=== PATIENT | female | born 1950 | race Caucasian/White ===

== ENCOUNTER 2016-04-16 04:42 | Emergency (ER) | END 2016-04-16 06:31 | disposition home or self-care (01) | CPT/HCPCS: 81001; 87086; 99283; A9270 ==

== ENCOUNTER 2016-05-17 11:06 | Outpatient (CLI) | payer MEDICAID | END 2016-05-17 11:07 | disposition home or self-care (01) | DX: Z77.21 Contact with and (suspected) exposure to potentially hazardous body fluids (principal) ==

== ENCOUNTER 2016-08-08 17:03 | Outpatient (CLI) | payer MEDICAID | END 2016-08-08 17:04 | disposition home or self-care (01) | DX: M19.012 Primary osteoarthritis, left shoulder (principal); M19.011 Primary osteoarthritis, right shoulder ==

== ENCOUNTER 2016-08-28 07:44 | Day surgery (SDC) | payer MEDICAID ==
[~2016-08-28 07:44] MED LIST: ceFAZolin 2 GM/50 ML 50 ML IV ONE
[2016-08-28] MEDS ORDERED: LACTATED RINGERS 1,000 ML IV ONE (07:55)
[2016-08-28] MEDS ORDERED: MIDAZOLAM 2 MG/2 ML VIAL IVP ONE (10:40)
[2016-08-28] MEDS ORDERED: PROPOFOL 200 MG/20 ML VIAL IVP ONE (10:40)
[2016-08-28] MEDS ORDERED: fentaNYL 100 MCG/2 ML VIAL IVP ONE (10:40)
[2016-08-28] MEDS ORDERED: LIDOCAINE-PF 2% 10 ML AMP SUBQ ONE (10:40)
[2016-08-28] MEDS ORDERED: LIDOCAINE 1% 50 ML MDV SUBQ ONE (10:46)
[2016-08-28] MEDS ORDERED: LIDOCAINE-PF 4% 5 ML AMP SUBQ ONE (10:55)
[2016-08-28] MEDS ORDERED: methylPREDNISolone ACETATE 40 MG/ML VIAL IM ONE ×2 (10:55)
[2016-08-28] MEDS ORDERED: KETOROLAC 15 MG/ML VIAL ONE (11:18)
--- NOTE | 2016-08-28 11:30 | OPERATIVE REPORT ---
DATE OF SURGERY: 08/28/2016 00:00:00 PREOPERATIVE DIAGNOSES 1. Left palm mass. 2. Bilateral shoulder impingement syndrome. POSTOPERATIVE DIAGNOSES 1. Left palm mass. 2. Bilateral shoulder impingement syndrome. NAME OF PROCEDURE: Left palm mass excisional biopsy and subacromial injection of each shoulder. SURGEON: Volodymyr Britton MD ANESTHESIA: Local MAC with Mark Stroud CRNA. INDICATIONS FOR SURGERY: The patient is a 65-year-old female who has developed a slow-growing lump in her palm sitting at the level of the A1 kong in the 4th volar webspace. This has now reached pea s ize and bothersome to her, causing some pain in well shooter, but no neurological disturbance. It is nonpulsa tile, it seems solid, does not show up on x-ray, and recommendation is that she have an excisional bi opsy performed. Additionally, the patient has impingement syndrome of her shoulders and recommendatio n is that she, at her request, have injections placed when under sedation. DESCRIPTION OF OPERATIVE PROCEDURE: The patient was taken to the operating room, was given a MAC loca l anesthetic. Her hand was sterilely prepped and draped in standard fashion. A timeout was performed. She was also infiltrated in the soft tissues around the small lump, as well as placing a median nerv e and an ulnar nerve block at the wrist level. The lump was directly approached through a transverse incision reflecting soft tissues away from a we ll encapsulated paul-like mass which was able to be delivered up into the subcutaneous tissue and ca refully excised, and this did appear to be well encapsulated throughout and not attached except for a small strand of tissue on the deep aspect. This lump was sent off to pathology after dividing it in half and finding it to be completely solid without fibrils, no apparent neural elements. The irrigati on was performed in the wound and closure was with interrupted 4-0 nylon suture. The patient's dressings were applied and a volar splint. The shoulders were injected with a quick pre p of iodine and injection into the subacromial space of each shoulder with 4 mL of 1% lidocaine and 1 mL of Depo-Medrol 40 mg/mL. The patient tolerated this well, and was taken to the recovery room in s table condition. ESTIMATED BLOOD LOSS: Minimal. COMPLICATIONS: None. SPONGE AND NEEDLE COUNTS: Correct. JOB #: [id number] EXT JOB #:[id number]
[2016-08-28] MEDS ORDERED: HYDROcod/ACETAM 5/325 MG TABLET ONE (11:44)
[2016-08-28 12:11] VITALS: BP 136/75
== END 2016-08-28 07:45 | disposition home or self-care (01) ==
LOC: SDS 07:44
PROVIDERS: ATTEND Orthopaedic Surgery
PROC: 3E0U33Z Introduction of Anti-inflammatory into Joints, Percutaneous Approach (ICD-10-PCS; 2016-08-28)
PROC: 3E0U33Z Introduction of Anti-inflammatory into Joints, Percutaneous Approach (ICD-10-PCS; 2016-08-28)
PROC: 3E0U3BZ Introduction of Anesthetic Agent into Joints, Percutaneous Approach (ICD-10-PCS; 2016-08-28)
PROC: 3E0U3BZ Introduction of Anesthetic Agent into Joints, Percutaneous Approach (ICD-10-PCS; 2016-08-28)
PROC: 0JBK0ZZ Excision of Left Hand Subcutaneous Tissue and Fascia, Open Approach (ICD-10-PCS; principal; 2016-08-28 09:35)
DX: D36.7 Benign neoplasm of other specified sites (principal); M75.41 Impingement syndrome of right shoulder; M75.42 Impingement syndrome of left shoulder; Z79.82 Long term (current) use of aspirin; Z87.891 Personal history of nicotine dependence; I10 Essential (primary) hypertension; E78.5 Hyperlipidemia, unspecified; E11.9 Type 2 diabetes mellitus without complications; G47.30 Sleep apnea, unspecified
CPT/HCPCS: 20610; 26115; 88305; A9270; J0690; J1030; J7120

== ENCOUNTER 2017-01-08 11:07 | Outpatient (CLI) | payer MEDICARE, MEDICAID | END 2017-01-08 11:08 | disposition home or self-care (01) | LOC: SC 11:07 | PROVIDERS: ATTEND Nurse Practitioner Family | DX: G47.33 Obstructive sleep apnea (adult) (pediatric) (principal) | CPT/HCPCS: 99214; G0463; 99212 ==

== ENCOUNTER 2017-02-02 19:25 | Outpatient (CLI) | payer MEDICARE, MEDICAID | END 2017-02-02 19:26 | disposition home or self-care (01) | LOC: SC 19:25 | PROVIDERS: ATTEND Internal Medicine Pulmonary Disease | DX: G47.33 Obstructive sleep apnea (adult) (pediatric) (principal); G47.61 Periodic limb movement disorder; Z68.35 Body mass index [BMI] 35.0-35.9, adult | CPT/HCPCS: 95811 ==

== ENCOUNTER 2017-02-27 07:31 | Outpatient (CLI) | payer MEDICARE, MEDICAID ==
[2017-02-27 07:48] LABS: BASOPHILS # (AUTO) 0.1 10^3/uL (0.0-0.1); BASOPHILS % (AUTO) 1.2 %; EOSINOPHILS # (AUTO) 0.6 10^3/uL (0.0-0.7); HCT - HEMATOCRIT 36.9 % (37.0-47.0); HGB - HEMOGLOBIN 12.8 g/dL (12.0-16.0); LYMPHOCYTES # (AUTO) 1.9 10^3/uL (1.5-3.5); LYMPHOCYTES % (AUTO) 28.6 %; MEAN CORPUSCULAR HEMOGLOBIN 31.4 pg (27.0-31.0); MEAN CORPUSCULAR HGB CONC 34.6 g/dL (32.0-36.0); MEAN CORPUSCULAR VOLUME 90.7 fL (81.0-99.0); MEAN PLATELET VOLUME 7.3 fL (7.9-10.8); MONOCYTES # (AUTO) 0.6 10^3/uL (0.0-1.0); MONOCYTES % (AUTO) 9.1 %; NEUTROPHILS # (AUTO) 3.5 10^3/uL (1.5-6.6); NEUTROPHILS % (AUTO) 52.1 %; NUCLEATED RED BLOOD CELLS AUTO 0.1 /100WBC; RED BLOOD COUNT 4.07 10^6/uL (4.20-5.40); RED CELL DISTRIBUTION WIDTH 13.4 % (12.0-15.0); UNCORRECTED WHITE BLOOD COUNT 6.7 x10^3/uL; WHITE BLOOD COUNT 6.7 x10^3/uL (4.8-10.8)
[2017-02-27 08:06] LABS: ALBUMIN/GLOBULIN RATIO 1.5 (1.0-2.2); BILIRUBIN,TOTAL 0.4 mg/dL (0.2-1.0); BUN - BLOOD UREA NITROGEN 18 mg/dL (6-20); CALCIUM 9.1 mg/dL (8.5-10.3); CARBON DIOXIDE - CO2 27 mmol/L (21-32); CHLORIDE 103 mmol/L (101-111); CHOL/HDL RATIO 2.9 (<4.4); CHOLESTEROL 147 mg/dL; CREATININE 0.8 mg/dL (0.4-1.0); GFR - MDRD 72 (>89); GLUCOSE 104 mg/dL (70-100); HDL CHOLESTEROL 50 mg/dL; LDL/HDL RATIO 1.8 (<4.4); SODIUM 139 mmol/L (135-145); TOTAL PROTEIN 7.1 g/dL (6.7-8.2); TRIGLYCERIDES 43 mg/dL; VLDL CHOLESTEROL 9 mg/dL
[2017-02-27 08:46] LABS: HEMOGLOBIN A1C 0.47 g/dL
== END 2017-02-27 07:32 | disposition home or self-care (01) ==
LOC: LAB 07:31
PROVIDERS: ATTEND Physician Assistant Medical
DX: Z86.39 Personal history of other endocrine, nutritional and metabolic disease (principal); E66.9 Obesity, unspecified; D64.9 Anemia, unspecified
CPT/HCPCS: 36415; 80053; 80061; 83036; 85025

== ENCOUNTER 2017-04-05 13:23 | Emergency (ER) | payer MEDICARE, MEDICAID ==
[2017-04-05 13:33] VITALS: BP 143/87
--- NOTE | 2017-04-05 14:49 | ED Physician Documentation ---
PD HPI UPPER EXT INJURY - Stated complaint Stated Complaint: RT FINGER LAC - Chief complaint Chief Complaint: Laceration - History obtained from History obtained from: Patient - History of Present Illness Location: Right, Finger (middle) Where injury occurred: Home Timing - onset: Today (Just prior to arrival.) Associated symptoms: No: Weakness, Numbness - Additonal information Additional information: The patient is a 66-year-old female who cut her right middle finger on a manager meat at home just prior to arrival. She is right hand dominant. Her tetanus status is up-to-date. She denies any other injuries. 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 HEENT: Cataracts, Tonsil/Adenoidectomy - Present Medications Home Medications: Ambulatory Orders Medication Instructions Recorded Confirmed Aspirin 1 tab PO DAILY 03/24/16 04/05/17 Biotin 5 mg PO DAILY 08/24/16 04/05/17 Cholecalciferol (Vitamin D3) 2,000 unit PO DAILY 08/24/16 04/05/17 [Vitamin D] Cranberry Fruit Extract [Cranberry] 300 mg PO DAILY 08/24/16 04/05/17 Loratadine [Claritin] 10 mg PO DAILY 08/24/16 04/05/17 Multivitamin [Multiple Vitamins] 1 each PO DAILY 08/24/16 04/05/17 - Allergies Allergies/Adverse Reactions: Allergies Allergy/AdvReac Type Severity Reaction Status Date / Time latex Allergy Intermediate Rash Verified 04/05/17 13:33 adhesive Allergy Rash Verified 04/05/17 13:33 - Social History Does the pt smoke?: No Smoking Status: Never smoker Does the pt drink ETOH?: No Does the pt have substance abuse?: No - Immunizations Immunizations are current?: Yes - POLST Patient has POLST: No PD ED PE NORMAL - Vitals Vital signs reviewed: Yes (initially hypertensive.) - General General: Alert and oriented X 3, Well developed/nourished - HEENT HEENT: Atraumatic - Respiratory Respiratory: No respiratory distress - Derm Derm: No rash - Extremities Extremities: Other (There is a 1.5 cm laceration over the dorsal aspect of the right middle finger, overlying the PIP joint. She has full flexion and extension of the DIP, PIP, and MCP joints, against resistance. Distal neurovascular is intact.) - Neuro Neuro: Alert and oriented X 3, No motor deficit, No sensory deficit Results - Vitals Vitals: Oxygen O2 Source [] Room air O2 Source Room air Procedures - Laceration (location) Right middle finger Length in cm: 1.5 Wound type: Linear, Into subcut fat, Clean Neurovascular status: Sensory intact, Motor intact, Vascular intact Tendon involvement: Tendon intact Anesthesia: Lidocaine 1% Wound Preparation: Hibiclens, Irrigated copiously NS, Wound explored, To the base. No: FB identified Skin layer closure: Nylon, Size #-0 - enter number (5), Sutures - enter # (3) Other: Patient tolerated well, No complications, Neurovascular intact, Dressing applied, Tetanus UTD Complexity: Simple PD MEDICAL DECISION MAKING - ED course Complexity details: re-evaluated patient, considered differential, d/w patient ED course: The patient's presentation is significant for simple laceration over the dorsum of the right middle finger at the level of the PIP joint. Treatment in the emergency department included thorough cleaning of the wound after local anesthetic using 1% lidocaine. The wound was repaired with 5-0 nylon simple sutures. Antibiotic ointment and gauze dressing applied. I discussed with her the expected course of healing, timing for suture removal, as well as potentially worrisome signs or symptoms that should prompt reevaluation in the emergency department. Departure - Departure Disposition: 01 Home, Self Care Clinical Impression: Finger laceration Qualifiers: Encounter type: initial encounter Finger: middle finger Damage to nail status: without damage Foreign body presence: without foreign body Laterality: right Qualified Code(s): S61.212A - Laceration without foreign body of right middle finger without damage to nail, initial encounter Condition: Stable Instructions: ED Laceration Hand Follow-Up: Mariah Dietz PA-C [Primary Care Provider] - Comments: Keep the wound clean. Apply antibiotic ointment daily. Follow-up for suture removal in about 10 days. Return to the emergency department if you develop any sign of infection, or otherwise worsening symptoms. Discharge Date/Time: 04/05/17 15:02
== END 2017-04-05 15:02 | disposition home or self-care (01) ==
LOC: ED 13:23
DX: S61.212A Laceration without foreign body of right middle finger without damage to nail, initial encounter (principal); W29.0XXA Contact with powered kitchen appliance, initial encounter; Y92.010 Kitchen of single-family (private) house as the place of occurrence of the external cause; I10 Essential (primary) hypertension; E11.9 Type 2 diabetes mellitus without complications; G47.30 Sleep apnea, unspecified; M19.90 Unspecified osteoarthritis, unspecified site; Z79.82 Long term (current) use of aspirin
CPT/HCPCS: 12001; 99282; 99283

== ENCOUNTER 2017-05-07 15:49 | Outpatient (CLI) | payer MEDICARE, MEDICAID | END 2017-05-07 15:50 | disposition home or self-care (01) | LOC: SC 15:49 | PROVIDERS: ATTEND Nurse Practitioner Family | DX: G47.33 Obstructive sleep apnea (adult) (pediatric) (principal) | CPT/HCPCS: 99214; G0463; 99212 ==

== ENCOUNTER 2017-07-10 07:34 | Outpatient (CLI) | payer MEDICARE, MEDICAID ==
[2017-07-10 07:55] LABS: BASOPHILS # (AUTO) 0.1 10^3/uL (0.0-0.1); BASOPHILS % (AUTO) 1.4 %; EOSINOPHILS # (AUTO) 0.3 10^3/uL (0.0-0.7); EOSINOPHILS % (AUTO) 5.7 %; HGB - HEMOGLOBIN 13.2 g/dL (12.0-16.0); LYMPHOCYTES # (AUTO) 2.1 10^3/uL (1.5-3.5); LYMPHOCYTES % (AUTO) 33.6 %; MEAN CORPUSCULAR HEMOGLOBIN 30.6 pg (27.0-31.0); MEAN CORPUSCULAR HGB CONC 33.5 g/dL (32.0-36.0); MEAN CORPUSCULAR VOLUME 91.2 fL (81.0-99.0); MEAN PLATELET VOLUME 7.3 fL (7.9-10.8); MONOCYTES # (AUTO) 0.5 10^3/uL (0.0-1.0); MONOCYTES % (AUTO) 8.7 %; NEUTROPHILS # (AUTO) 3.1 10^3/uL (1.5-6.6); NEUTROPHILS % (AUTO) 50.6 %; PLT - PLATELET COUNT 195 10^3/uL (130-450); RED BLOOD COUNT 4.32 10^6/uL (4.20-5.40); RED CELL DISTRIBUTION WIDTH 13.5 % (12.0-15.0); WHITE BLOOD COUNT 6.1 x10^3/uL (4.8-10.8)
[2017-07-10 08:06] LABS: ALBUMIN 4.4 g/dL (3.2-5.5); ALBUMIN/GLOBULIN RATIO 1.6 (1.0-2.2); BILIRUBIN,TOTAL 0.6 mg/dL (0.2-1.0); CALCIUM 9.1 mg/dL (8.5-10.3); CREATININE 0.8 mg/dL (0.4-1.0); TOTAL PROTEIN 7.2 g/dL (6.7-8.2)
== END 2017-07-10 07:35 | disposition home or self-care (01) ==
LOC: LAB 07:34
PROVIDERS: ATTEND Physician Assistant Medical
DX: Z86.39 Personal history of other endocrine, nutritional and metabolic disease (principal); M17.9 Osteoarthritis of knee, unspecified
CPT/HCPCS: 36415; 80053; 85025

== ENCOUNTER 2017-07-22 08:55 | Outpatient (CLI) | payer MEDICARE, MEDICAID | END 2017-07-22 08:56 | disposition home or self-care (01) | LOC: LAB 08:55 | PROVIDERS: ATTEND Orthopaedic Surgery | DX: Z01.810 Encounter for preprocedural cardiovascular examination (principal); M17.12 Unilateral primary osteoarthritis, left knee | CPT/HCPCS: 36415; 86850; 86900; 86901; 93005 ==

== ENCOUNTER 2017-07-23 06:13 | Inpatient (IN) | payer MEDICARE, MEDICAID ==
[2017-07-23] MEDS ORDERED: LACTATED RINGERS 1,000 ML IV ONE (06:32)
[2017-07-23] MEDS ORDERED: CELECOXIB 100 MG CAPSULE PO ONE (06:35)
[2017-07-23] MEDS ORDERED: ACETAMINOPHEN 1,000 MG/100 ML 100 ML IV ONE ×2 (06:35→09:00)
[2017-07-23] MEDS ORDERED: ceFAZolin 2 GM/50 ML 2 GM/50 ML BAG IV ONE (06:36)
[2017-07-23] MEDS ORDERED: EPINEPHrine 1 MG/ML AMP ONE (07:07)
[2017-07-23] MEDS ORDERED: BUPIVACAINE 0.5% PF 30 ML VIAL ONE (07:07)
[2017-07-23] MEDS ORDERED: ROPIVACAINE 0.5% PF 20 ML AMPULE ONE (07:07)
[2017-07-23] MEDS ORDERED: SODIUM CHLORIDE 0.9% 30 ML ONE (07:07)
[2017-07-23] MEDS ORDERED: ALBUTEROL NEB 2.5 MG/3 ML INH ONE (07:16)
[2017-07-23] MEDS ORDERED: IPRATROPIUM 0.2 MG/ML NEB INH ONE (07:18)
[2017-07-23] MEDS ORDERED: ALBUTEROL 6.7 GM INHALER INH ONE (08:00)
[2017-07-23] MEDS ORDERED: MORPHINE PF 5 MG/10 ML AMP SUBQ ONE (08:51)
[2017-07-23] MEDS ORDERED: KETOROLAC 15 MG/ML VIAL IVP ONE (08:51)
[2017-07-23] MEDS ORDERED: BUPIVACAINE 0.5% PF 30 ML VIAL SUBQ ONE ×2 (08:51)
[2017-07-23] MEDS ORDERED: ROPIVACAINE 0.2% PF 20 ML AMPULE SUBQ ONE (08:51)
[2017-07-23] MEDS ORDERED: EPINEPHrine 1 MG/ML AMP IVP ONE (08:51)
[2017-07-23] MEDS ORDERED: MIDAZOLAM 2 MG/2 ML VIAL IVP ONE (09:00)
[2017-07-23] MEDS ORDERED: MORPHINE PF 5 MG/10 ML AMP EP ONE (09:00)
[2017-07-23] MEDS ORDERED: PROPOFOL 200 MG/20 ML VIAL IVP ONE (09:00)
[2017-07-23] MEDS ORDERED: ONDANSETRON 4 MG/2 ML VIAL IVP ONE (09:00)
[2017-07-23] MEDS ORDERED: KETOROLAC 30 MG/ML VIAL IVP ONE (09:00)
[2017-07-23] MEDS ORDERED: LIDOCAINE-MPF 2% 5 ML VIAL IM ONE (09:00)
--- NOTE | 2017-07-23 09:59 | OPERATIVE REPORT ---
Operative Report - General Admit Date: 07/23/17 Procedure Date: 07/23/17 Planned Procedure: left TKA Pre-Op Diagnosis: DJD left knee Procedure Performed: left TKA Post Op Diagnosis: DJD left knee - Procedure Note Primary Surgeon: juhi Anesthesia Provider: Dr. Barrow Anesthesia Technique: Combo spinal/epidural, General ET tube IV Fluids (mL): 60
[2017-07-23] MEDS ORDERED: MEPERIDINE 50 MG/ML VIAL ONE (10:35)
--- NOTE | 2017-07-23 11:31 | XRAY Report ---
TWO VIEW LEFT KNEE: 07/23/2017 CLINICAL INDICATION: Postop. FINDINGS: Frontal and lateral views of the left knee demonstrate a total knee replacement in place. Subcutaneous gas is noted. There is no evidence of acute fracture or immediate hardware complication. IMPRESSION: EXPECTED POSTOPERATIVE APPEARANCE OF LEFT KNEE REPLACEMENT. TD: 07/23/2017 10:56
[2017-07-23] MEDS: HYDROcod/ACETAM 5/325 MG TABLET PO PRN ×2 (11:38→19:56)
[2017-07-23] MEDS: SODIUM CHLORIDE 0.45% 1,000 ML IV SCH ×2 (11:39→22:37)
--- NOTE | 2017-07-23 12:20 | OPERATIVE REPORT ---
DATE OF SERVICE: 07/23/2017 Physician: Volodymyr Britton MD PREOPERATIVE DIAGNOSIS: Left knee osteoarthritis. POSTOPERATIVE DIAGNOSIS: PROCEDURE PERFORMED: Left total knee arthroplasty. OPERATING SURGEON: Volodymyr Britton MD ANESTHESIA: Spinal and general, Dr. Blue. INDICATIONS FOR SURGERY: The patient is a 66-year-old female who 2 years ago underwent a right total knee arthroplasty for osteoarthritis and has done well in the postoperative period. She presents now with increasing osteoarthritis in her left knee and constant knee pain, nonresponsive to conservative measures. FINDINGS AT SURGERY: The patient's knee range of motion under anesthesia is 5 degrees to 115 degrees. The knee is stable. There was a small amount of effusion and crepitus with range of motion. At open surgery, she is found to have severe cartilage loss in the medial compartment and in the distal aspect of the femur, femoral groove and patella. The patient's bone density is fairly well preserved and she has very prominent osteophytes. DESCRIPTION OF OPERATIVE PROCEDURE: The patient was taken to the operating room, was given a spinal anesthetic, a Mcintosh catheter was placed and she was in a supine position. The patient's left lower extremity was sterilely prepped and draped in standard fashion and after surgical timeout, the surgery progressed with inflation of the tourniquet to 300 mmHg. A curved medial approach was made to the knee with a medial parapatellar incision extending up into the junction of the distal quadriceps and VMO. Effusion was irrigated from the knee and the knee joint exposed with removal of osteophytes with a rongeur, lateral release of patella and subluxation of the patella laterally for flexion of the knee and exposure of the joint. The ACL remnant was removed, as were the anterior horns of medial and lateral meniscus. The distal femur was sized to a size 8 standard and the distal femoral cutting block was applied and the distal femur cut. Following this, the sequential cutting block for a size 8 was applied and the 4-in-1 cuts were made carefully retracting and protecting soft tissues. The remaining osteophytes were removed from the femur. The tibia was then addressed by placing retractors and subluxating the tibia anteriorly, placing the external tibial guide and adjusting for rotation, slope and height. Ultimately, the cut was made and the proximal surface was sized to a size E baseplate. The trial template was set in place and held with screws, and drilling and broaching performed for the finned tibial component. The osteophytes again were removed from these surfaces. The trial reduction was performed with the femur in place and electing to use a size 16 poly to recreate stability about the knee and excellent alignment and range of motion without extrusion of the components. The patient's posterior osteophytes were removed with an osteotome and a curette. The knee was flushed and irrigated thoroughly, after which the patella was prepared by measuring 24 cutting down to 16 and then medializing and drilling a size 32 patella. All surfaces were then prepared for cementing of implants, and the implants were brought into the field cementing in first the tibial baseplate and removing excess cement, then cementing in the femoral component, and then placing a temporary trial spacer to allow extension as the patella was cemented in place and held. Cement was allowed to progress to hardening with removal of excess cement. The tibial baseplate, size 16, was brought into the field and with careful subluxation of the tibia, the baseplate was able to be inserted and reduced and was stable. The knee was again washed thoroughly and given a dilute Betadine soak for about 2-3 minutes, after which the wash ended and pulsatile lavage rinsed the Betadine from the knee and the tourniquet was deflated. Bleeding was controlled with cautery. Closure was with FiberWire interrupted sutures in the patient's medial retinaculum obtaining a watertight closure followed by 0 and 2-0 Vicryl closure of subcutaneous tissues and 3-0 Prolene running closure of skin. A sterile dressing and a reinforced compressive dressing was applied to the knee after which the patient was then taken to recovery room in stable condition. ESTIMATED BLOOD LOSS: About 60 mL COMPLICATIONS: None. COUNTS: Sponge and needle counts were correct. IMPLANTS USED: [employer] Person[employer] total knee implants. A left regular size 8 femur, a size E baseplate, size 16 vitamin E infused poly, a size 32 x 8.5 mm patella. TD: 07/23/2017 12:18
[2017-07-23] MEDS: HYDROmorphone 1 MG/ML CARPUJECT IVP PRN ×4 (12:39→22:23)
[2017-07-23] MEDS: ACETAMINOPHEN 1,000 MG/100 ML 100 ML IV PRN ×2 (13:22→19:57)
[2017-07-23] MEDS: SODIUM CHLORIDE FLUSH 0.9% 10 ML SYRINGE IVP SCH (15:26)
[2017-07-23] MEDS: ceFAZolin 2 GM/50 ML 2 GM/50 ML BAG IV SCH (15:35)
[2017-07-23] MEDS: SODIUM CHLORIDE FLUSH 0.9% 10 ML SYRINGE IVP PRN (15:35)
[2017-07-23] MEDS: ONDANSETRON 4 MG/2 ML VIAL IVP PRN (22:28)
[2017-07-24] MEDS: HYDROcod/ACETAM 5/325 MG TABLET PO PRN ×3 (00:31→09:39)
[2017-07-24] MEDS: ceFAZolin 2 GM/50 ML 2 GM/50 ML BAG IV SCH (00:31)
[2017-07-24] MEDS: SODIUM CHLORIDE FLUSH 0.9% 10 ML SYRINGE IVP SCH ×3 (00:31→18:07)
[2017-07-24] MEDS: HYDROmorphone 1 MG/ML CARPUJECT IVP PRN ×3 (03:17→10:59)
[2017-07-24] MEDS: SODIUM CHLORIDE FLUSH 0.9% 10 ML SYRINGE IVP PRN (03:18)
[2017-07-24 05:05] LABS: BASOPHILS % (AUTO) 0.5 %; EOSINOPHILS % (AUTO) 0.2 %; HGB - HEMOGLOBIN 10.5 g/dL (12.0-16.0); LYMPHOCYTES # (AUTO) 1.2 10^3/uL (1.5-3.5); LYMPHOCYTES % (AUTO) 12.7 %; MEAN CORPUSCULAR HEMOGLOBIN 30.5 pg (27.0-31.0); MEAN CORPUSCULAR HGB CONC 33.5 g/dL (32.0-36.0); MEAN CORPUSCULAR VOLUME 91.2 fL (81.0-99.0); MEAN PLATELET VOLUME 7.6 fL (7.9-10.8); MONOCYTES # (AUTO) 1.1 10^3/uL (0.0-1.0); NEUTROPHILS # (AUTO) 6.9 10^3/uL (1.5-6.6); NEUTROPHILS % (AUTO) 74.6 %; PLT - PLATELET COUNT 145 10^3/uL (130-450); RED BLOOD COUNT 3.44 10^6/uL (4.20-5.40); RED CELL DISTRIBUTION WIDTH 13.2 % (12.0-15.0); WHITE BLOOD COUNT 9.2 x10^3/uL (4.8-10.8)
[2017-07-24 05:09] LABS: CALCIUM 8.6 mg/dL (8.5-10.3); CREATININE 0.7 mg/dL (0.4-1.0)
--- NOTE | 2017-07-24 08:12 | PROVIDER PROGRESS NOTE ---
Subjective - General Admit Date: 07/23/17 Procedure Date: 07/23/17 Post Op Days: 1 Procedure Performed: left Total Knee arthroplasty Objective - Patient Data Reviewed Vital Signs: Yes Vital Signs: Vital Signs x48h Temp Pulse Resp BP BP Pulse Ox 07/24/17 07:49 36.7 C 68 19 128/67 100 07/24/17 05:02 36.5 C 66 18 125/76 100 07/24/17 00:24 36.4 C L 75 18 122/65 99 Weight: Weight 07/22/17 07/23/17 07/24/17 23:59 23:59 23:59 Weight (kg) 89.358 kg Intake & Output: Intake and Output Totals x24h 07/22/17 07/23/17 07/24/17 23:59 23:59 23:59 Intake Total 2550 50 Output Total 800 240 Balance 1750 -190 - Lab Results Lab Results: 07/24/17 04:45 07/24/17 04:45 Other Lab Results: Lab Results x24hrs 07/24/17 07/24/17 Range/Units 04:45 04:45 WBC 9.2 (4.8-10.8) x10^3/uL RBC 3.44 L (4.20-5.40) 10^6/uL Hgb 10.5 L (12.0-16.0) g/dL Hct 31.3 L (37.0-47.0) % MCV 91.2 (81.0-99.0) fL MCH 30.5 (27.0-31.0) pg MCHC 33.5 (32.0-36.0) g/dL RDW 13.2 (12.0-15.0) % Plt Count 145 (130-450) 10^3/uL MPV 7.6 L (7.9-10.8) fL Neut # 6.9 H (1.5-6.6) 10^3/uL Lymph # 1.2 L (1.5-3.5) 10^3/uL [place] # 1.1 H (0.0-1.0) 10^3/uL Eos # 0.0 (0.0-0.7) 10^3/uL Baso # 0.0 (0.0-0.1) 10^3/uL Absolute Nucleated RBC 0.00 x10^3/uL Nucleated RBC % 0.0 /100WBC Sodium 136 (135-145) mmol/L Potassium 4.0 (3.5-5.0) mmol/L Chloride 102 (101-111) mmol/L Carbon Dioxide 28 (21-32) mmol/L Anion Gap 6.0 (6-13) BUN 12 (6-20) mg/dL Creatinine 0.7 (0.4-1.0) mg/dL Estimated GFR (MDRD) 84 L (>89) Glucose 142 H (70-100) mg/dL Calcium 8.6 (8.5-10.3) mg/dL - Current Medications Current Medications: Current Medications Generic Name Dose Route Start Last Admin Trade Name Freq PRN Reason Stop Dose Admin Acetaminophen/Hydrocodone Bitart 1 tab 07/23/17 10:00 07/24/17 06:09 [place] 5/325 PO 1 tab Q4HR PRN Administration PAIN Hydromorphone HCl 1 mg 07/23/17 10:00 07/24/17 03:17 Dilaudid Inj Carp IVP 1 mg Q2HR PRN Administration Breakthrough Pain Acetaminophen 100 mls @ 400 mls/hr 07/23/17 10:00 07/23/17 20:15 Ofirmev IV Infused Q6HR PRN Infusion PAIN Sodium Chloride 1,000 mls @ 100 mls/hr 07/23/17 12:30 07/23/17 22:37 Normal Saline 0.45% IV 100 mls/hr .Q10H RANDALL Administration Ondansetron HCl 4 mg 07/23/17 10:00 07/23/17 22:28 Zofran Inj IVP 4 mg Q6HR PRN Administration Nausea / Vomiting Sodium Chloride 10 ml 07/23/17 17:00 07/24/17 07:51 Normal Saline Flush 0.9% IVP Not Given 0100,0900,1700 RANDALL Sodium Chloride 10 ml 07/23/17 10:00 07/24/17 03:18 Normal Saline Flush 0.9% IVP 10 ml PRN PRN Administration NEEDED PER PROVIDER ORDERS Impression/Plan - Problem List Problem List: POD #1:
[2017-07-24] MEDS: ONDANSETRON 4 MG/2 ML VIAL IVP PRN (08:28)
[2017-07-24] MEDS: PROCHLORPERAZINE 10 MG/2 ML VIAL IVP PRN ×3 (09:08→21:44)
[2017-07-24] MEDS: SODIUM CHLORIDE 0.45% 1,000 ML IV SCH (09:10)
[2017-07-24] MEDS: MAGNESIUM OXIDE 400 MG TABLET PO SCH (09:39)
[2017-07-24] MEDS: ASPIRIN EC 325 MG TABLET PO SCH ×2 (09:39→20:00)
[2017-07-24] MEDS: SENNA 8.6 MG TABLET PO SCH (09:39)
[2017-07-24] MEDS: OMEGA-3 ACID ETHYL ESTERS 1 GM CAPSULE PO SCH (09:39)
[2017-07-24] MEDS: CHOLECALCIFEROL 1,000 UNIT TABLET PO SCH (09:39)
[2017-07-24] MEDS: METRONIDAZOLE TOP SCH (09:40)
[2017-07-24] MEDS: POTASSIUM GLUCONATE PO SCH (09:40)
[2017-07-24] MEDS ORDERED: ZOLPIDEM 5 MG TABLET PO PRN (12:03)
[2017-07-24] MEDS ORDERED: SODIUM CHLORIDE 0.45% 1,000 ML IV SCH (12:05)
[2017-07-24] MEDS: oxyCOD/ACETAMIN 5 MG/325 MG TABLET PO PRN ×3 (14:14→21:42)
[2017-07-25] MEDS: SODIUM CHLORIDE FLUSH 0.9% 10 ML SYRINGE IVP SCH ×3 (02:43→20:25)
[2017-07-25] MEDS: oxyCOD/ACETAMIN 5 MG/325 MG TABLET PO PRN ×5 (02:51→20:25)
[2017-07-25] MEDS: SENNA 8.6 MG TABLET PO SCH (08:34)
[2017-07-25] MEDS: MAGNESIUM OXIDE 400 MG TABLET PO SCH (08:34)
[2017-07-25] MEDS: ASPIRIN EC 325 MG TABLET PO SCH ×2 (08:34→20:26)
[2017-07-25] MEDS: CHOLECALCIFEROL 1,000 UNIT TABLET PO SCH (08:34)
[2017-07-25] MEDS: OMEGA-3 ACID ETHYL ESTERS 1 GM CAPSULE PO SCH (08:34)
[2017-07-25] MEDS: METRONIDAZOLE TOP SCH (08:35)
[2017-07-25] MEDS: POTASSIUM GLUCONATE PO SCH (08:35)
[2017-07-25] MEDS: ACETAMINOPHEN 325 MG TABLET PO PRN (09:38)
--- NOTE | 2017-07-25 13:13 | PROVIDER PROGRESS NOTE ---
Subjective - General Admit Date: 07/23/17 Procedure Date: 07/23/17 Post Op Days: 2 Procedure Performed: left Total Knee arthroplasty - Review of Systems Wound/Incisions: positive: Dressing dry and intact Musculoskeletal: positive: Joint pain Skin: positive: No symptoms Neurological: Psychiatric: positive: No symptoms Objective - Patient Data Reviewed Vital Signs: Yes Vital Signs: Vital Signs x48h Temp Pulse Resp BP Pulse Ox 07/25/17 11:10 37.3 C 82 20 137/69 H 98 07/25/17 07:33 37.1 C 86 19 130/65 96 07/25/17 06:19 36.9 C 83 18 137/74 H 95 Weight: Weight 07/23/17 07/24/17 07/25/17 23:59 23:59 23:59 Weight (kg) 89.358 kg Intake & Output: Intake and Output Totals x24h 07/23/17 07/24/17 07/25/17 23:59 23:59 23:59 Intake Total 2550 2558.333 1340 Output Total 800 1690 Balance 1750 373.206 4849 - Lab Results Lab Results: 07/24/17 04:45 07/24/17 04:45 - Current Medications Current Medications: Current Medications Generic Name Dose Route Start Last Admin Trade Name Freq PRN Reason Stop Dose Admin Acetaminophen 650 - 975 mg 07/23/17 10:00 07/25/17 09:38 Tylenol PO 650 mg Q4HR PRN Administration PAIN Aspirin 325 mg 07/24/17 09:00 07/25/17 08:34 Ecotrin PO 325 mg BID RANDALL Administration Cholecalciferol 2,000 unit 07/24/17 09:00 07/25/17 08:34 Vitamin D3 PO 2,000 unit DAILY RANDALL Administration Acetaminophen 100 mls @ 400 mls/hr 07/23/17 10:00 07/23/17 20:15 Ofirmev IV Infused Q6HR PRN Infusion PAIN Sodium Chloride 1,000 mls @ 0 mls/hr 07/24/17 12:05 07/25/17 08:32 Normal Saline 0.45% IV 30 mls/hr .Q0M RANDALL Administration TKO Magnesium Oxide 400 mg 07/24/17 08:00 07/25/17 08:34 Mag Ox PO 400 mg DAILYWM RANDALL Administration Non-Formulary Medication 1 applic 07/24/17 09:00 07/25/17 08:35 Metronidazole [Metronidazole] TOP Not Given DAILY [facility] Non-Formulary Medication 1 tab 07/24/17 09:00 07/25/17 08:35 Potassium Gluconate [Potassium Gluconate] PO Not Given DAILY [facility] Rtqbm-3-Eyvy Ethyl Esters 1 gm 07/24/17 09:00 07/25/17 08:34 Lovaza PO 1 gm DAILY RANDALL Administration Ondansetron HCl 4 mg 07/23/17 10:00 07/24/17 08:28 Zofran Inj IVP 4 mg Q6HR PRN Administration Nausea / Vomiting Oxycodone/Acetaminophen 1 tab 07/24/17 12:02 07/25/17 09:38 Percocet 5 Mg/325 Mg PO 1 tab Q4HR PRN Administration PAIN Prochlorperazine Edisylate 10 mg 07/23/17 10:00 07/24/17 21:44 Compazine Inj IVP 10 mg Q6HR PRN Administration Nausea / Vomiting Senna 8.6 mg 07/24/17 09:00 07/25/17 08:34 Senokot PO 8.6 mg DAILY RANDALL Administration Sodium Chloride 10 ml 07/23/17 17:00 07/25/17 08:35 Normal Saline Flush 0.9% IVP Not Given 0100,0900,1700 RANDALL Sodium Chloride 10 ml 07/23/17 10:00 07/24/17 03:18 Normal Saline Flush 0.9% IVP 10 ml PRN PRN Administration NEEDED PER PROVIDER ORDERS Zolpidem Tartrate 5 mg 07/24/17 12:03 07/24/17 23:54 Ambien PO 5 mg QPM PRN Administration Insomnia - Physical Exam Wound/Incisions: positive: Dressing dry and intact General Appearance: positive: No acute distress Skin: positive: Warm, Dry Extremities: positive: Joint swelling Neurologic/Psychiatric: positive: CN's nml (2-12), Motor nml, Sensation nml, Mood/affect nml Impression/Plan - Problem List Problem List: POD #2 advancing well. and better pain control Plan on continued PT.
[2017-07-26] MEDS: oxyCOD/ACETAMIN 5 MG/325 MG TABLET PO PRN ×3 (00:27→08:40)
[2017-07-26] MEDS: SODIUM CHLORIDE FLUSH 0.9% 10 ML SYRINGE IVP SCH ×2 (00:28→08:03)
[2017-07-26 08:02] VITALS: BP 113/88
[2017-07-26] MEDS: CHOLECALCIFEROL 1,000 UNIT TABLET PO SCH (08:39)
[2017-07-26] MEDS: SENNA 8.6 MG TABLET PO SCH (08:39)
[2017-07-26] MEDS: MAGNESIUM OXIDE 400 MG TABLET PO SCH (08:40)
[2017-07-26] MEDS: OMEGA-3 ACID ETHYL ESTERS 1 GM CAPSULE PO SCH (08:40)
[2017-07-26] MEDS: ASPIRIN EC 325 MG TABLET PO SCH (08:40)
[2017-07-26] MEDS: ACETAMINOPHEN 325 MG TABLET PO PRN (08:40)
[2017-07-26] MEDS: METRONIDAZOLE TOP SCH (08:42)
[2017-07-26] MEDS: POTASSIUM GLUCONATE PO SCH (08:42)
--- NOTE | 2017-07-26 09:17 | PROVIDER PROGRESS NOTE ---
Subjective - General Admit Date: 07/23/17 Procedure Date: 07/23/17 Post Op Days: 3 Procedure Performed: left Total Knee arthroplasty - Review of Systems Wound/Incisions: positive: Dressing dry and intact Musculoskeletal: positive: Joint pain Skin: positive: No symptoms Psychiatric: positive: No symptoms Objective - Patient Data Reviewed Vital Signs: Yes Vital Signs: Vital Signs x48h Temp Pulse Resp BP Pulse Ox 07/26/17 08:00 37.1 C 88 19 113/88 H 98 Intake & Output: Intake and Output Totals x24h 07/24/17 07/25/17 07/26/17 23:59 23:59 23:59 Intake Total 2558.333 3184.667 160 Output Total 1690 700 Balance 719.720 0204.667 160 - Lab Results Lab Results: 07/24/17 04:45 07/24/17 04:45 - Current Medications Current Medications: Current Medications Generic Name Dose Route Start Last Admin Trade Name Freq PRN Reason Stop Dose Admin Acetaminophen 650 - 975 mg 07/23/17 10:00 07/26/17 08:40 Tylenol PO 650 mg Q4HR PRN Administration PAIN Aspirin 325 mg 07/24/17 09:00 07/26/17 08:40 Ecotrin PO 325 mg BID RANDALL Administration Cholecalciferol 2,000 unit 07/24/17 09:00 07/26/17 08:39 Vitamin D3 PO 2,000 unit DAILY RANDALL Administration Acetaminophen 100 mls @ 400 mls/hr 07/23/17 10:00 07/23/17 20:15 Ofirmev IV Infused Q6HR PRN Infusion PAIN Sodium Chloride 1,000 mls @ 0 mls/hr 07/24/17 12:05 07/25/17 14:32 Normal Saline 0.45% IV 0 mls/hr .Q0M RANDALL Infusion TKO Magnesium Oxide 400 mg 07/24/17 08:00 07/26/17 08:40 Mag Ox PO 400 mg DAILYWM RANDALL Administration Non-Formulary Medication 1 applic 07/24/17 09:00 07/26/17 08:42 Metronidazole [Metronidazole] TOP Not Given DAILY [facility] Non-Formulary Medication 1 tab 07/24/17 09:00 07/26/17 08:42 Potassium Gluconate [Potassium Gluconate] PO Not Given DAILY [facility] Hedba-7-Qspr Ethyl Esters 1 gm 07/24/17 09:00 07/26/17 08:40 Lovaza PO 1 gm DAILY RANDALL Administration Ondansetron HCl 4 mg 07/23/17 10:00 07/24/17 08:28 Zofran Inj IVP 4 mg Q6HR PRN Administration Nausea / Vomiting Oxycodone/Acetaminophen 1 tab 07/24/17 12:02 07/26/17 08:40 Percocet 5 Mg/325 Mg PO 1 tab Q4HR PRN Administration PAIN Prochlorperazine Edisylate 10 mg 07/23/17 10:00 07/24/17 21:44 Compazine Inj IVP 10 mg Q6HR PRN Administration Nausea / Vomiting Senna 8.6 mg 07/24/17 09:00 07/26/17 08:39 Senokot PO 8.6 mg DAILY RANDALL Administration Sodium Chloride 10 ml 07/23/17 17:00 07/26/17 08:03 Normal Saline Flush 0.9% IVP Not Given 0100,0900,1700 RANDALL Sodium Chloride 10 ml 07/23/17 10:00 07/24/17 03:18 Normal Saline Flush 0.9% IVP 10 ml PRN PRN Administration NEEDED PER PROVIDER ORDERS Zolpidem Tartrate 5 mg 07/24/17 12:03 07/24/17 23:54 Ambien PO 5 mg QPM PRN Administration Insomnia - Physical Exam Wound/Incisions: positive: Healing well General Appearance: positive: No acute distress Extremities: positive: Joint swelling Neurologic/Psychiatric: positive: Motor nml, Sensation nml, Mood/affect nml Impression/Plan - Problem List Problem List: POD #3 Pt is doing well and prepared for d/c. wound dressing changed. plan to see in office in one week.
--- NOTE | 2017-07-26 09:23 | Discharge Plan ---
Discharge Plan Disposition: 01 Home, Self Care Condition: Good Prescriptions: Aspirin EC [Ecotrin] 325 mg PO BID #60 tablet Diet: Regular Activity Restrictions: Wt Bearing as Tolerated Shower Restrictions: Yes (cover left knee and keep dry) Driving Restrictions: Yes (no driving) Assistance Devices: Walker Weight Bearing: Full Weight Instruction Topics: Tips Knee Post Op, Post Op Pain Manage Home Meds, Post Op Pain Manage Home Non Med No Smoking: If you smoke, Please STOP! Call for help. Follow-up with: Mariah Dietz PA-C [Primary Care Provider] - Volodymyr Britton MD [Provider Admit Priv/Credential] -
--- NOTE | 2017-08-05 18:59 | DISCHARGE SUMMARY ---
Physician: Volodymyr Britton MD DATE OF ADMISSION: 07/23/2017 DATE OF DISCHARGE: 07/26/2017 ADMISSION DIAGNOSIS: Left knee osteoarthritis. OPERATIVE PROCEDURE: 07/23/2017, left total knee replacement arthroplasty. REASON FOR ADMISSION: Patient is a 66-year-old female with progressive osteoarthritis involving her left knee, who has had a previous successful right total knee arthroplasty for arthritis and now presents for the same on the left knee. The patient has had worsening pain and diminishing function and has failed nonoperative care. The patient's history and physical exam is documented in her admission record. HOSPITAL COURSE: The patient was admitted and she underwent an uneventful total knee arthroplasty on 07/23/2017. In the postoperative period she was returned to the floor receiving standard postop care including IV antibiotics, DVT prophylaxis, early mobilization with physical therapy, pain medication and wound care. The patient showed uneventful healing in this postoperative period to the point that on 07/26/2017 she was ready for discharge to home with planned followup in the office within a week. Instructions were given for management at home and she was to resume her usual medication. Additionally, she was to use aspirin for DVT prophylaxis and oxycodone for pain relief. TD: 08/05/2017 18:57
== END 2017-07-26 10:50 | disposition home or self-care (01) | DRG 470 ==
LOC: MS3 06:13
PROVIDERS: ADMIT Orthopaedic Surgery; ATTEND Orthopaedic Surgery
PROC: 0SRD069 Replacement of Left Knee Joint with Oxidized Zirconium on Polyethylene Synthetic Substitute, Cemented, Open Approach (ICD-10-PCS; principal; 2017-07-23 07:30)
DX: M17.12 Unilateral primary osteoarthritis, left knee (principal); G47.33 Obstructive sleep apnea (adult) (pediatric); D64.9 Anemia, unspecified; E66.9 Obesity, unspecified; M19.012 Primary osteoarthritis, left shoulder; M19.011 Primary osteoarthritis, right shoulder; Z96.651 Presence of right artificial knee joint; Z68.34 Body mass index [BMI] 34.0-34.9, adult; Z79.82 Long term (current) use of aspirin; Z79.899 Other long term (current) drug therapy; Z87.891 Personal history of nicotine dependence
CPT/HCPCS: 36415; 80048; 85025

== ENCOUNTER 2017-09-21 09:54 | Emergency (ER) | payer MEDICARE, MEDICAID ==
--- NOTE | 2017-09-21 11:01 | ED Physician Documentation ---
PD HPI BACK PAIN - Stated complaint Stated Complaint: LOWER BACK PX - Chief complaint Chief Complaint: Back Pain - History obtained from History obtained from: Patient - History of Present Illness Timing - onset: How many weeks ago (has had some pain in lower left back for 1- 2 weeks and worse the past couple days. Hurts with movement but also a steady pain that is not movement related. Knee surgery in July is healing okay, but had obvious limp favoring the knee as healing so thought it was muscular.) Timing - duration: Weeks Timing - details: Gradual onset, Still present, Waxing and waning Location: Lower, Left Quality: Pain, Aching Associated symptoms: No: Fever, Weakness, Numbness, Incontinent of urine Improves with: No: Rest Worsened by: Movement Contributing factors: Other (Knee surgery 2 months ago. Denies leg edema nor infection.). No: Lifting, Twisting Similar symptoms before: Has not had sx before Recently seen: Surgery (left knee 2 months ago.) Review of Systems Constitutional: denies: Fever, Chills : denies: Dysuria, Frequency, Hematuria, Discharge Skin: denies: Rash, Lesions Musculoskeletal: denies: Extremity swelling Neurologic: denies: Focal weakness, Numbness PD PAST MEDICAL HISTORY - Past Medical History Past Medical History: Yes Cardiovascular: None Respiratory: Sleep apnea, CPAP use Endocrine/Autoimmune: Type 2 diabetes GI: None : None HEENT: None, Other Psych: None Musculoskeletal: Osteoarthritis Derm: None, Other - Past Surgical History Past Surgical History: Yes General: Colonoscopy 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 HEENT: Cataracts, Tonsil/Adenoidectomy Derm: Skin cancer surgery - Present Medications Home Medications: Ambulatory Orders Medication Instructions Recorded Confirmed Biotin 5 mg PO DAILY 08/24/16 07/23/17 Cholecalciferol (Vitamin D3) 2,000 unit PO DAILY 08/24/16 07/23/17 [Vitamin D3] Magnesium Oxide [Magnesium] 400 mg PO QPM 07/16/17 07/24/17 [place]-3/Dha/Epa/Fish Oil [Fish Oil 1 gm PO DAILY 07/16/17 07/24/17 1,000 mg Softgel] Potassium Gluconate 99 mg PO DAILY 07/16/17 07/24/17 Senna [Senokot] 8.6 mg PO DAILY 07/16/17 07/23/17 metroNIDAZOLE [Metronidazole] 1 applic TOP DAILY 07/16/17 07/23/17 Aspirin EC [Ecotrin] 325 mg PO BID #60 tablet 07/26/17 oxyCODONE/ACET 5/325 [Percocet 5 1 tab PO Q4HR PRN #0 tablet 07/26/17 mg/325 mg] HYDROcod/ACETAM 5/325 [[place]amo 5/325] 1 tab PO Q6H PRN #25 tablet 09/21/17 Tizanidine HCl 4 mg PO TID PRN #25 capsule 09/21/17 - Allergies Allergies/Adverse Reactions: Allergies Allergy/AdvReac Type Severity Reaction Status Date / Time latex Allergy Intermediate Rash Verified 07/16/17 14:57 adhesive Allergy Rash Verified 07/16/17 14:57 MABEL Wraps AdvReac Rash Uncoded 07/16/17 14:57 - Social History Does the pt smoke?: No Smoking Status: Never smoker Does the pt drink ETOH?: No Does the pt have substance abuse?: No - Immunizations Immunizations are current?: Yes - POLST Patient has POLST: No PD ED PE NORMAL - Vitals Vital signs reviewed: Yes - General General: Alert and oriented X 3, Well developed/nourished, Other (appears uncomfortable) - Neck Neck: Supple, no meningeal sign, No adenopathy - Cardiac Cardiac: RRR, No murmur - Respiratory Respiratory: Clear bilaterally - Abdomen Abdomen: Normal bowel sounds, Soft, Non tender, Non distended, No organomegaly - Female Female : Deferred - Rectal Rectal: Deferred - Back Back: No CVA TTP, No spinal TTP (but has some tenderness lateral muscles to the left. No rash nor sores. ) Results - Vitals Vitals: Oxygen O2 Source [Without Activity] Room air O2 Source Room air - Labs Labs: Laboratory Tests 09/21/17 11:40 Urine Color YELLOW Urine Clarity CLEAR Urine pH 6.0 Ur Specific [place] 1.020 Urine Protein NEGATIVE Urine Glucose (UA) NEGATIVE Urine Ketones NEGATIVE Urine Occult Blood NEGATIVE Urine Nitrite NEGATIVE Urine Bilirubin NEGATIVE Urine Urobilinogen 0.2 (NORMAL) Ur Leukocyte Esterase NEGATIVE Ur Microscopic Review NOT INDICATED Urine Culture Comments NOT INDICATED - Rads (name of study) KUB CT Radiology: Prelim report reviewed, EMP read contemporaneously PD MEDICAL DECISION MAKING - ED course Complexity details: reviewed results (apparent 1 mm stone in distal ureter, so can be some of the pain. ), re-evaluated patient, considered differential (has muscular components but also some deeper pain so will get CT. ) - Sepsis Event Vital Signs: Oxygen O2 Source [Without Activity] Room air O2 Source Room air Departure - Departure Disposition: 01 Home, Self Care Clinical Impression: Left lumbar pain Qualifiers: Chronicity: acute Sciatica presence: without sciatica Qualified Code(s): M54.5 - Low back pain Condition: Stable Record reviewed to determine appropriate education?: Yes Instructions: ED Low Back Pain Injury Follow-Up: Mariah Dietz PA-C [Primary Care Provider] - Prescriptions: HYDROcod/ACETAM 5/325 [[place]amo 5/325] 1 tab PO Q6H PRN #25 tablet PRN Reason: Pain Tizanidine HCl 4 mg PO TID PRN #25 capsule PRN Reason: Spasms Comments: Your pain seems to be muscular with the tenderness on that side. There are no obvious fractures on CT scan. There was a possible 1 mm stone in the distal ureter on the left side. This is small enough that should pass on its own and was questionable if it was in the ureter but would have similar treatment with anti-inflammatories and pain medicine. For the back we would also add muscle relaxant tizanidine. Follow-up with your primary care if not improved over the next several days. He can see the orthopedist on this coming week as planned for the shoulder steroid injection and I would not see the medications we're using preclude that. Discharge Date/Time: 09/21/17 13:15
[2017-09-21] MEDS ORDERED: TRIAMCINOLONE 40 MG/ML VIAL IM STA (11:14)
[2017-09-21] MEDS ORDERED: HYDROcod/ACETAM 5/325 MG TABLET PO STA (11:14)
[2017-09-21] MEDS ORDERED: ACETAMINOPHEN 325 MG TABLET PO STA (11:14)
[2017-09-21] MEDS ORDERED: KETOROLAC 60 MG/2 ML VIAL IM STA (11:14)
[2017-09-21 11:45] LABS: BILIRUBIN,URINE NEGATIVE (NEGATIVE); GLUCOSE, URINE (UA) NEGATIVE (NEGATIVE); KETONES,URINE (UA) NEGATIVE (NEGATIVE); LEUKOCYTE ESTERASE, URINE NEGATIVE (NEGATIVE); NITRITE,URINE NEGATIVE (NEGATIVE); OCCULT BLOOD,URINE NEGATIVE (NEGATIVE); PROTEIN,URINE NEGATIVE (NEGATIVE); UROBILINOGEN,URINE 0.2 (NORMAL) E.U./dL (NORMAL)
[2017-09-21 11:46] LABS: CLARITY,URINE CLEAR (CLEAR)
--- NOTE | 2017-09-21 11:59 | CT Report ---
EXAM: CT ABDOMEN AND PELVIS EXAM DATE: 09/21/2017 11:26 AM. CLINICAL HISTORY: Left lower back pain for a month; no injury. COMPARISONS: 02/11/2013 CT TECHNIQUE: Routine helical CT imaging was performed through the abdomen and pelvis. IV contrast: None . Enteric contrast: No. Reconstructions: Coronal and sagittal. In accordance with CT protocol optimization, one or more of the following dose reduction techniques w ere utilized for this exam: automated exposure control, adjustment of mA and/or KV based on patient s ize, or use of iterative reconstructive technique. FINDINGS: Lung Bases: Calcified granuloma abutting the diaphragm in right lower lobe, series 3 image 10. Small hiatal hernia. Otherwise unremarkable.2 Liver: Hepatomegaly with right lobe 19 cm superior to inferior. Previously seen low-attenuation focus in right lobe/cyst in segment 4 is not apparent on current exam. No discrete liver mass. Gallbladder/Bile Ducts: Unremarkable. Spleen: Normal. Pancreas: Normal. Adrenal Glands: Normal. Left kidney:: Tiny stone measuring less than 1 mm in mid kidney, series 3 image 41. No hydronephrosis . No ureter dilation. New punctate 1 mm calcification along the expected course of nondilated left ur eter, series 3 image 105, not seen clearly on prior study. Additional phleboliths are also seen in th e pelvis. No renal mass. Perinephric soft tissues unremarkable. Right kidney: Unremarkable. No stone, mass or hydronephrosis. Ureters are unremarkable. Peritoneal Cavity/Bowel: Normal. No free fluid, free air or adenopathy. No masses or acute inflammato ry process. The appendix is well visualized and normal. Pelvic Organs: The bladder and visualized pelvic organs are within normal limits. Vasculature: Calcified atherosclerosis. No aneurysms or other significant abnormality. Bones: No significant abnormality. Other: None. IMPRESSION: 1. New tiny submillimeter calcification in the left mid kidney consistent with nonobstructing stone. Additional 1 mm calcification in left pelvis is seen along the projected course of left ureter which may represent a nonobstructing ureter stone. Localization of the nondilated left ureter is limited on this study performed without contrast. 2. No additional kidney stone. No bladder stone or findings suspicious for additional ureter stone. 3. Mild hepatomegaly. 4. No acute abnormality seen. Examination otherwise as detailed above. [facility] Referring Provider Line: [phone] SITE ID: [id number]
[2017-09-21 13:17] VITALS: BP 147/88
== END 2017-09-21 13:15 | disposition home or self-care (01) ==
LOC: ED 09:54
DX: M54.5 Low back pain (principal); E11.9 Type 2 diabetes mellitus without complications; Z79.82 Long term (current) use of aspirin; Z96.659 Presence of unspecified artificial knee joint
CPT/HCPCS: 74176; 81003; 96372; 99283; A9270; 81001; 87086

== ENCOUNTER 2018-04-07 09:02 | Outpatient (CLI) | payer MEDICAID, MEDICARE | END 2018-04-07 09:03 | disposition home or self-care (01) | LOC: SC 09:02 | PROVIDERS: ATTEND Nurse Practitioner Family | DX: G47.33 Obstructive sleep apnea (adult) (pediatric) (principal) | CPT/HCPCS: 99214; G0463; 99212 ==

== ENCOUNTER 2018-04-23 21:46 | Outpatient (CLI) | payer MEDICARE, MEDICAID ==
--- NOTE | 2018-04-23 23:26 | Ultrasound Report ---
Reason: EDEMA Procedure Date: 04/23/2018 Accession Number: [id number] / [id number] Procedure: US - Duplex Ext Veins Bilateral CPT Code: FULL RESULT: EXAM: BILATERAL LOWER EXTREMITY VENOUS ULTRASOUND EXAM DATE: 04/23/2018 11:04 PM. CLINICAL HISTORY: Bilateral lower extremity edema, positive D-dimer. COMPARISON: CHEST 2 VIEW PA/LAT 04/22/2018 2:47 PM. TECHNIQUE: Real-time sonographic vascular imaging was performed by the certified medical assistant through the lower extremities utilizing both color-flow and Doppler spectral analysis. Multiple applications sales representative static images were saved for review. Right: Common Femoral Vein (CFV): No evidence of thrombus. CFV-GSV Junction: No evidence of thrombus. Profunda Femoral Vein (PFV): No evidence of thrombus. Femoral Vein (FV) Prox: No evidence of thrombus. Femoral Vein (FV) Mid: No evidence of thrombus. Femoral Vein (FV) Dist: No evidence of thrombus. Popliteal Vein: No evidence of thrombus. Posterior Tibial Veins: No evidence of thrombus. Peroneal Veins: No evidence of thrombus. Left: Common Femoral Vein (CFV): No evidence of thrombus. CFV-GSV Junction: No evidence of thrombus. Profunda Femoral Vein (PFV): No evidence of thrombus. Femoral Vein (FV) Prox: No evidence of thrombus. Femoral Vein (FV) Mid: No evidence of thrombus. Femoral Vein (FV) Dist: No evidence of thrombus. Popliteal Vein: No evidence of thrombus. Posterior Tibial Veins: No evidence of thrombus. Peroneal Veins: No evidence of thrombus. 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 IMPRESSION: No evidence for deep venous thrombosis. [facility] The call report notification system was initiated by Dr. Melanie Henning at 23:23 hrs on 04/23/18. The above findings were discussed with ASHLY Smith PA-C by Dr. Melanie Henning at 23:24 hrs on 04/23/18.
== END 2018-04-23 21:47 | disposition home or self-care (01) ==
LOC: DI 21:46
PROVIDERS: ATTEND Physician Assistant Medical
DX: R60.0 Localized edema (principal)
CPT/HCPCS: 93970

== ENCOUNTER 2018-04-24 12:56 | Outpatient (CLI) | payer MEDICARE, MEDICAID ==
[2018-04-24] MEDS ORDERED: IOVERSOL 320 100 ML VIAL IVP ONE ×2 (13:07→14:07)
--- NOTE | 2018-04-24 14:31 | CT Report ---
Reason: DYSPNEA ON EXERTION Procedure Date: 04/24/2018 Accession Number: [id number] / [id number] Procedure: CT - Chest W/ CPT Code: FULL RESULT: EXAM: CT CHEST EXAM DATE: 04/24/2018 01:43 PM. CLINICAL HISTORY: DYSPNEA ON EXERTION. COMPARISONS: None. TECHNIQUE: Routine helical CT imaging was performed through the chest. IV contrast: 80 cc Optiray 320. Reconstructions: Coronal and sagittal. In accordance with CT protocol optimization, one or more of the following dose reduction techniques were utilized for this exam: automated exposure control, adjustment of mA and/or KV based on patient size, or use of iterative reconstructive technique. FINDINGS: Lungs/Pleura: Right anterior midlung solid nodule 4 mm, 08/04. 4 mm and a 3 mm anterior lateral right midlung solid nodules 08/11. Other scattered tiny nodules of the right lung. There are calcified granulomas of the right lung. No pneumothorax or pleural effusion. Mediastinum: No adenopathy or masses. The heart and great vessels are normal. No vascular abnormalities. Bones: No bone lesions. Visualized Abdomen: Unremarkable. IMPRESSION: Right pulmonary nodules measure up to 4 mm. In a low-risk patient no follow-up is required. In a high risk patient consider follow-up chest CT in 12 months. Old granulomatous disease. [facility]
== END 2018-04-24 12:57 | disposition home or self-care (01) ==
LOC: DI 12:56
PROVIDERS: ATTEND Physician Assistant Medical
DX: R06.09 Other forms of dyspnea (principal); R91.8 Other nonspecific abnormal finding of lung field
CPT/HCPCS: 71260; Q9967

== ENCOUNTER 2018-10-20 13:51 | Outpatient (CLI) | payer MEDICARE ==
--- NOTE | 2018-10-21 11:03 | Mammography Report ---
Reason: SCREENING MAMMO Procedure Date: 10/20/2018 Accession Number: [id number] / [id number] Procedure: JAIME - Screening Mammo w/Nahid CPT Code: FULL RESULT: EXAM: Screening Mammo w/Nahid DATE: 10/20/2018 2:37 PM CLINICAL HISTORY: Screening encounter. No reported risk factors. TECHNIQUE: (B) - Bilateral CC and MLO views were obtained. COMPARISON: 01/22/2013. PARENCHYMAL PATTERN: (A) - The breast(s) demonstrate(s) scattered fibroglandular densities. FINDINGS: In the left lower medial breast, approximately 7:00 position 2.5 cm from the nipple is a 0.7 cm partially obscured isodense nodule, best seen on the left MLO view 3-D image 26 in the left CC view 3-D image 25. This requires additional spot views as well as ultrasound for further characterization. There are no suspicious masses, calcifications, or areas of distortion in the right breast. IMPRESSION: Incomplete examination. BI-RADS category 0. RECOMMENDATION: (ADDMU) - Additional views using both Mammography and Ultrasound recommended. BI-RADS CATEGORY: (0) - Incomplete Examination - need additional evaluation. STANDARD QUALIFYING STATEMENTS: 1. This examination was not reviewed with the aid of Computer-Aided Detection (CAD). 2. A negative or benign imaging report should not preclude biopsy if clinically suspicious findings are present. 3. Dense breasts may obscure an underlying neoplasm. 4. This examination was reviewed with the aid of 3D breast imaging (tomosynthesis).
== END 2018-10-20 13:52 | disposition home or self-care (01) ==
LOC: DI 13:51
DX: Z12.31 Encounter for screening mammogram for malignant neoplasm of breast (principal)
CPT/HCPCS: 77063; 77067

== ENCOUNTER 2018-11-17 12:52 | Outpatient (CLI) | payer MEDICARE ==
--- NOTE | 2018-11-17 15:04 | Mammography Report ---
Reason: ABNORMAL MAMMOGRAM Procedure Date: 11/17/2018 Accession Number: [id number] / [id number] Procedure: JAIME - Diag Special Views Dig LT CPT Code: FULL RESULT: EXAM: Diag Special Views Dig LT DATE: 11/17/2018 2:06 PM CLINICAL HISTORY: Diagnostic examination. The patient is recalled from screening for a left breast nodule. TECHNIQUE: (L) - Left spot CC, spot MLO and ML images are obtained. Focused left breast ultrasound is performed. COMPARISON: 01/22/2013. PARENCHYMAL PATTERN: (A) - The breast(s) demonstrate(s) scattered fibroglandular densities. FINDINGS: Spot images confirm presence of the previously seen nodule which mammographically appears to be focal widening of a dilated duct as seen on left ML 3-D image 29. Focused left breast ultrasound is performed which demonstrates the corresponding dilated duct with no appreciated intraluminal solid component and no abnormal vascularity seen within the duct. There is no surrounding architectural distortion. The appearance is probably benign no comparison to the remote 2012 images is complicated by absence of 3-D imaging and greater breast density. There are no suspicious masses, calcifications, or areas of distortion. IMPRESSION: Probably Benign. BI-RADS category 3. RECOMMENDATION: (6MOS) - Recommend 6 month follow-up exam. Left breast ultrasound. BI-RADS CATEGORY: (3) - Probably Benign. STANDARD QUALIFYING STATEMENTS: 1. This examination was not reviewed with the aid of Computer-Aided Detection (CAD). 2. A negative or benign imaging report should not preclude biopsy if clinically suspicious findings are present. 3. Dense breasts may obscure an underlying neoplasm. 4. This examination was reviewed with the aid of 3D breast imaging (tomosynthesis).
== END 2018-11-17 12:53 | disposition home or self-care (01) ==
LOC: DI 12:52
PROVIDERS: ATTEND Nurse Practitioner
DX: R92.8 Other abnormal and inconclusive findings on diagnostic imaging of breast (principal)
CPT/HCPCS: 76642

== ENCOUNTER 2018-11-18 13:53 | Outpatient (CLI) | payer MEDICARE ==
--- NOTE | 2018-11-19 08:12 | DEXA Report ---
Reason: HX OF NORMAL MENOPAUSE Procedure Date: 11/18/2018 Accession Number: [id number] / [id number] Procedure: DEX - Dexa Spine and/or Hip CPT Code: FULL RESULT: EXAM: Dexa Spine and/or Hip DATE: 11/18/2018 2:24 PM CLINICAL HISTORY: HX OF NORMAL MENOPAUSE TECHNIQUE: Dual energy x-ray absorptiometry (DXA) was performed on a [employer] System. Regions measured are the AP Spine, femoral neck, and if needed forearm. COMPARISON: None. In accordance with the International Society for Clinical Densitometry (ISCD) guidelines, data from previous exams may be reanalyzed using current recommendations and techniques. This is done to allow a more accurate basis for comparison with the current study. FINDINGS: The data for the lumbar spine is as follows: BMD (g/cm/cm) T-SCORE Z-SCORE REGION L1 1.061 -0.6 0.2 L2 1.292 0.8 1.5 L3 1.306 0.9 1.6 L4 1.382 1.5 2.3 TOTAL 1.274 0.8 1.5 NOTE: All evaluable vertebrae are used for classification The data for the hip is as follows: BMD (g/cm/cm) T-SCORE Z-SCORE REGION Neck 0.946 -0.7 0.3 TOTAL 1.021 0.1 0.8 NOTE: The femoral neck or total proximal femur, whichever is lowest, is used for classification. IMPRESSION: THE WHO CLASSIFICATION BASED ON THE INTERNATIONAL REFERENCE STANDARD IS NORMAL. THE FRACTURE RISK IS NOT INCREASED. RECOMMENDATION: Patients with diagnosis of osteoporosis or osteopenia should have regular bone mineral density assessment. For those eligible for Medicare, routine testing is allowed once every 2 years. Testing frequency can be increased for patients who have rapidly progressing disease or for those who are receiving medical therapy to restore bone mass. COMMENT: World Health Organization (WHO) definitions for osteoporosis and osteopenia: NORMAL BMD: T-score at -1.0 or higher, fracture risk is low OSTEOPENIA BMD: T-score between -1.0 and -2.5, fracture risk is increased. OSTEOPOROSIS BMD: T-score at -2.5 or lower, fracture risk is high. National Osteoporosis Foundation recommends: 1. Obtain adequate dietary calcium (at least 1200 mg per day) and vitamin D (400-800 international units per day). 2. Participate, as appropriate, in regular weightbearing and muscle-strengthening exercise. 3. Avoid tobacco use and reduce alcohol and caffeine intake. 4. For more detailed information see the website at www.NOF.org.
== END 2018-11-18 13:54 | disposition home or self-care (01) ==
LOC: DI 13:53
PROVIDERS: ATTEND Nurse Practitioner
DX: Z78.0 Asymptomatic menopausal state (principal)
CPT/HCPCS: 77080

== ENCOUNTER 2018-12-10 06:40 | Day surgery (SDC) | payer MEDICARE ==
[2018-12-10] MEDS ORDERED: LACTATED RINGERS 1,000 ML IV ONE (06:50)
[2018-12-10] MEDS ORDERED: fentaNYL 250 MCG/5 ML VIAL IVP ONE (09:27)
[2018-12-10] MEDS ORDERED: fentaNYL 100 MCG/2 ML VIAL IVP ONE (09:27)
[2018-12-10] MEDS ORDERED: MIDAZOLAM 2 MG/2 ML VIAL IVP ONE (09:27)
[2018-12-10 09:51] VITALS: BP 120/72
== END 2018-12-10 06:41 | disposition home or self-care (01) ==
LOC: SDS 06:40
PROVIDERS: ATTEND Surgery
PROC: 0DJD8ZZ Inspection of Lower Intestinal Tract, Via Natural or Artificial Opening Endoscopic (ICD-10-PCS; principal; 2018-12-10 08:15)
DX: Z12.11 Encounter for screening for malignant neoplasm of colon (principal); K64.8 Other hemorrhoids; G47.33 Obstructive sleep apnea (adult) (pediatric)
CPT/HCPCS: G0121; J3010; J7120

== ENCOUNTER 2019-04-22 09:38 | Emergency (ER) | payer MEDICARE ==
--- NOTE | 2019-04-22 10:52 | ED Physician Documentation ---
PD HPI UPPER EXT INJURY - Stated complaint Stated Complaint: RT SHOULDER PX - Chief complaint Chief Complaint: Ext Problem - History obtained from History obtained from: Patient - History of Present Illness Location: Right, Shoulder, Other (upper back) Type of injury: No: Fall, Twist Where injury occurred: Home (she awoke and had pain right posterior shoulder, scapular area and right side of neck. No particular injury. history of shoulder arthritis.) Timing - onset: Today Worsened by: Moving, Palpating Associated symptoms: No: Weakness, Numbness, Swelling Similar symptoms before: Has not had sx before Review of Systems Constitutional: denies: Fever, Chills Nose: denies: Rhinorrhea / runny nose, Congestion Throat: denies: Sore throat Cardiac: denies: Chest pain / pressure, Palpitations Respiratory: denies: Dyspnea, Cough PD PAST MEDICAL HISTORY - Past Medical History Cardiovascular: None Respiratory: Sleep apnea, CPAP use Endocrine/Autoimmune: Type 2 diabetes GI: None : None HEENT: None, Other Psych: None Musculoskeletal: Osteoarthritis Derm: None, Other - Past Surgical History Past Surgical History: Yes General: Colonoscopy 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 HEENT: Cataracts, Tonsil/Adenoidectomy Derm: Skin cancer surgery - Present Medications Home Medications: Ambulatory Orders Medication Instructions Recorded Confirmed Albuterol 2.5 mg PO PRN PRN 12/09/18 12/09/18 Baclofen 10 mg PO TID 12/09/18 12/09/18 Calcium Carbonate [Calcium] 1,200 mg PO DAILY 12/09/18 12/09/18 Cholecalciferol (Vitamin D3) 2,000 mg PO DAILY 12/09/18 12/09/18 [Vitamin D3] Magnesium 400 mg PO DAILY 12/09/18 12/09/18 Potassium Gluconate 550 mg PO DAILY 12/09/18 12/09/18 Sertraline [Zoloft] 50 mg PO DAILY 12/09/18 12/09/18 metroNIDAZOLE 0.75% GEL 45 tube .ROUTE DAILY 12/09/18 12/09/18 Hydrocodone/Acetaminophen [[place] 1 each PO Q6H PRN #15 tablet 04/22/19 5-325 Tablet] Tizanidine HCl 4 mg PO TID PRN #25 capsule 04/22/19 dexAMETHasone [Decadron] 4 mg PO DAILY #5 tablet 04/22/19 - Allergies Allergies/Adverse Reactions: Allergies Allergy/AdvReac Type Severity Reaction Status Date / Time latex Allergy Intermediate Rash Verified 04/22/19 09:41 adhesive Allergy Rash Verified 04/22/19 09:41 MABEL Wraps AdvReac Rash Uncoded 04/22/19 09:41 - Social History Does the pt smoke?: No Smoking Status: Never smoker Does the pt drink ETOH?: No Does the pt have substance abuse?: No - Immunizations Immunizations are current?: Yes - POLST Patient has POLST: No PD ED PE NORMAL - Vitals Vital signs reviewed: Yes - General General: Alert and oriented X 3, No acute distress, Well developed/nourished - Neck Neck: Supple, no meningeal sign, No bony TTP, Other (right lateral neck and lateral trapezius area with tenderness. No rash nor sores. Right shoulder itself without tenderness nor effusion. The suprascapular area has some muscle tenderness. ) - Cardiac Cardiac: RRR, No murmur - Respiratory Respiratory: Clear bilaterally - Back Back: No spinal TTP - Derm Derm: Normal color, Warm and dry, No rash - Neuro Neuro: Alert and oriented X 3, No motor deficit, No sensory deficit, Normal speech Results - Vitals Vitals: Vital Signs - 24 hr 04/22/19 04/22/19 09:41 12:22 Temperature 36.5 C 36.6 C Heart Rate 63 65 Respiratory 14 15 Rate Blood Pressure 159/86 H 135/75 H O2 Saturation 98 99 Oxygen O2 Source [Without Activity] Room air O2 Source Room air Departure - Departure Disposition: 01 Home, Self Care Clinical Impression: Pain of right scapula Condition: Stable Record reviewed to determine appropriate education?: Yes Follow-Up: Nikki Nevarez ARNP, [employer] [Primary Care Provider] - Prescriptions: dexAMETHasone [Decadron] 4 mg PO DAILY #5 tablet Hydrocodone/Acetaminophen [[place] 5-325 Tablet] 1 each PO Q6H PRN #15 tablet PRN Reason: Pain Tizanidine HCl 4 mg PO TID PRN #25 capsule PRN Reason: Spasms Comments: This sounds muscular in the trapezius muscle and may be some pressure on the nerve root. Use Decadron steroid for the next 5 days. Tizanidine muscle relaxant for spasms. Heat and gentle stretching for the area. Add pain medicine if needed. Recheck if not improving well over the next several days. Discharge Date/Time: 04/22/19 12:22
[2019-04-22] MEDS ORDERED: CHERRY SYRUP 10 ML UDC PO ONE (11:21)
[2019-04-22] MEDS ORDERED: ACETAMINOPHEN 325 MG TABLET PO STA (11:21)
[2019-04-22] MEDS ORDERED: methocarbamoL 500 MG TABLET PO STA (11:21)
[2019-04-22] MEDS ORDERED: DEXAMETHASONE 10 MG/ML VIAL PO STA (11:21)
[2019-04-22 12:23] VITALS: BP 135/75
== END 2019-04-22 12:22 | disposition home or self-care (01) ==
LOC: ED 09:38
DX: M25.511 Pain in right shoulder (principal); E11.9 Type 2 diabetes mellitus without complications
CPT/HCPCS: 99283; 99284; A9270

== ENCOUNTER 2019-06-18 12:23 | Outpatient (CLI) | payer MEDICARE ==
--- NOTE | 2019-06-18 16:17 | Ultrasound Report ---
Reason: ABN MAMMO - 6MO F/U Procedure Date: 06/18/2019 Accession Number: [id number] / [id number] Procedure: US - Breast Unilateral Limited CPT Code: Final Report FULL RESULT: EXAM: Breast Unilateral Limited DATE: 06/18/2019 12:54 PM CLINICAL HISTORY: ABN MAMMO - 6MO F/U COMPARISON: Diagnostic mammogram 11/17/2018 and breast ultrasound performed the same date. TECHNIQUE: Targeted ultrasound was performed of the left breast in the area of clinical concern at 6 o'clock immediately retroareolar. Color Doppler was employed as appropriate. FINDINGS: The previously sonographically characterized wider than tall hypoechoic breast lesion appears unchanged and is most consistent with probably benign" ductal ectasia with no solid soft tissue component identified. IMPRESSION: Probable benign findings RECOMMENDATION: Recommend diagnostic right breast mammogram in 6 months. At the time of annual left breast screening mammography. BIRADS CATEGORY 3 [facility]
== END 2019-06-18 12:24 | disposition home or self-care (01) ==
LOC: DI 12:23
PROVIDERS: ATTEND Nurse Practitioner
DX: R92.8 Other abnormal and inconclusive findings on diagnostic imaging of breast (principal)
CPT/HCPCS: 76642

== ENCOUNTER 2020-01-29 11:49 | Outpatient (CLI) | payer MEDICARE ==
--- NOTE | 2020-01-29 13:25 | XRAY Report ---
PROCEDURE: Cervical Spine 2 View INDICATIONS: CERVICAL [id number], RT SHOULDER PAIN TECHNIQUE: 4 view(s) of the cervical spine were acquired. COMPARISON: None. FINDINGS: Bones: No fracture. Straightening of the normal cervical lordosis. Scattered multilevel endplate spur ring and diffuse facet arthropathy. Severe narrowing of the C5-C6 disc space and mild to moderate narrowing of the remaining cervical dis c spaces. Soft tissues: No prevertebral soft tissue swelling. IMPRESSION: Multilevel cervical spondylosis most pronounced at C5-C6. Diffuse facet arthropathy. Straightening of the normal lordotic curvature. Reviewed by: Tylor Watkins MD on 01/29/2020 1:24 PM PDT Approved by: Tylor Watkins MD on 01/29/2020 1:24 PM PDT Station ID: [id number]
--- NOTE | 2020-01-29 13:26 | XRAY Report ---
PROCEDURE: Shoulder 2 View RT INDICATIONS: CERVICAL [id number], RT SHOULDER PAIN TECHNIQUE: 2 views of the shoulder were acquired. COMPARISON: None. FINDINGS: Bones: No fractures or dislocations. No suspicious bony lesions. Visualized ribs appear intact. S evere AC joint degeneration. Glenohumeral degenerative sclerosis and spurring. Presumed high density calcified granuloma projecting in the right upper lobe. Soft tissues: No suspicious soft tissue calcifications. IMPRESSION: Right shoulder joint degeneration as above. If the patient's pain or other symptoms persist, consider further evaluation with MRI. Reviewed by: Tylor Watkins MD on 01/29/2020 1:25 PM PDT Approved by: Tylor Watkins MD on 01/29/2020 1:25 PM PDT Station ID: [id number]
== END 2020-01-29 11:50 | disposition home or self-care (01) ==
LOC: DI 11:49
PROVIDERS: ATTEND Family Medicine
DX: M47.22 Other spondylosis with radiculopathy, cervical region (principal); M19.011 Primary osteoarthritis, right shoulder
CPT/HCPCS: 72040

== ENCOUNTER 2020-02-26 07:36 | Outpatient (CLI) | payer MEDICARE ==
[2020-02-26 07:50] LABS: BASOPHILS # (AUTO) 0.1 10^3/uL (0.0-0.1); BASOPHILS % (AUTO) 1.2 %; EOSINOPHILS # (AUTO) 0.3 10^3/uL (0.0-0.7); HGB - HEMOGLOBIN 13.5 g/dL (12.0-16.0); LYMPHOCYTES # (AUTO) 2.1 10^3/uL (1.5-3.5); LYMPHOCYTES % (AUTO) 36.8 %; MEAN CORPUSCULAR HGB CONC 32.8 g/dL (32.0-36.0); MEAN CORPUSCULAR VOLUME 94.5 fL (81.0-99.0); MONOCYTES # (AUTO) 0.5 10^3/uL (0.0-1.0); MONOCYTES % (AUTO) 8.4 %; NEUTROPHILS # (AUTO) 2.7 10^3/uL (1.5-6.6); NEUTROPHILS % (AUTO) 47.4 %; PLT - PLATELET COUNT 188 10^3/uL (130-450); RED BLOOD COUNT 4.35 10^6/uL (4.20-5.40); RED CELL DISTRIBUTION WIDTH 12.6 % (12.0-15.0); WHITE BLOOD COUNT 5.7 x10^3/uL (4.8-10.8)
[2020-02-26 08:05] LABS: ALBUMIN 4.4 g/dL (3.2-5.5); ALBUMIN/GLOBULIN RATIO 1.5 (1.0-2.2); ALKALINE PHOSPHATASE 80 IU/L (42-121); ALT ALANINE AMINOTRANSFERASE 25 IU/L (10-60); AST ASPARTATE AMINOTRANSFERASE 40 IU/L (10-42); BILIRUBIN,TOTAL 0.6 mg/dL (0.2-1.0); BUN - BLOOD UREA NITROGEN 17 mg/dL (6-20); CALCIUM 9.5 mg/dL (8.5-10.3); CARBON DIOXIDE - CO2 27 mmol/L (21-32); CHLORIDE 102 mmol/L (101-111); CHOL/HDL RATIO 3.4 (<4.4); CHOLESTEROL 199 mg/dL; CREATININE 0.9 mg/dL (0.4-1.0); GLUCOSE 105 mg/dL (70-100); HDL CHOLESTEROL 58 mg/dL; LDL CHOLESTEROL,CALCULATED 123 mg/dL; LDL/HDL RATIO 2.1 (<4.4); SODIUM 141 mmol/L (135-145); TOTAL PROTEIN 7.4 g/dL (6.7-8.2); VLDL CHOLESTEROL 18 mg/dL
== END 2020-02-26 07:37 | disposition home or self-care (01) ==
LOC: LAB 07:36
PROVIDERS: ATTEND Nurse Practitioner
DX: Z00.00 Encounter for general adult medical examination without abnormal findings (principal); F32.9 Major depressive disorder, single episode, unspecified; J45.909 Unspecified asthma, uncomplicated; G47.33 Obstructive sleep apnea (adult) (pediatric); M19.012 Primary osteoarthritis, left shoulder; M19.011 Primary osteoarthritis, right shoulder
CPT/HCPCS: 36415; 80053; 80061; 83721; 84443; 85025

== ENCOUNTER 2020-03-29 08:17 | Outpatient (CLI) | payer MEDICARE ==
--- NOTE | 2020-03-30 10:33 | Mammography Report ---
BILATERAL DIGITAL DIAGNOSTIC MAMMOGRAM 3D/2D: 03/29/2020 CLINICAL: Patient returns for short term follow-up of a probably benign mass in the left breast. Rout ine screening right breast. Comparison is made to exams dated: 11/17/2018 mammogram, 10/20/2018 mammogram, and 01/22/2013 mammogram - [facility]. There are scattered fibroglandular elements in both breasts. Redemonstration of previously described oval equal density focal asymmetry in the left breast at 7 o' clock anterior depth. This is not significantly changed and correlates with ultrasound findings. No other significant masses, calcifications, or other findings are seen in either breast. IMPRESSION: INCOMPLETE: NEEDS ADDITIONAL IMAGING EVALUATION The oval equal density focal asymmetry in the left breast is indeterminate. An ultrasound is recommended for further evaluation and is scheduled to immediately follow this exami nation. This exam was interpreted at Station ID: [id number]. NOTE: For mammograms, a report in lay terms will be sent to the patient. Approximately 15% of breast malignancies will not be visualized mammographically. In the management of a palpable breast mass, a negative mammogram must not discourage biopsy of a clinically suspicious lesion. Electronically Signed By: James Fry M.D. aty/:03/29/2020 09:39:22 ACR BI-RADS Category 0: Incomplete 3340F PARENCHYMAL PATTERN: (A) - The breast(s) demonstrate(s) scattered fibroglandular densities. BI-RADS CATEGORY: (0) - 0 Ultrasound [id number] Immediate follow-up LATERALITY: (L)
--- NOTE | 2020-03-30 10:33 | Ultrasound Report ---
LIMITED ULTRASOUND OF LEFT BREAST: 03/29/2020 CLINICAL: 6 month follow-up of ductal ectasia. Comparison is made to exams dated: 03/29/2020 mammogram, 06/18/2019 ultrasound, 11/17/2018 ultrasound, mammogram, 10/20/2018 mammogram, and 01/22/2013 mammogram - [facility]. Color flow and real-time ultrasound of the left breast 6 o'clock, and retroareolar regions were perf ormed. Orellana scale images of the real-time examination were reviewed. Redemonstration of previously described duct ectasia in the left breast at 6 o'clock anterior depth. This duct ectasia displays no posterior acoustic shadowing or enhancement. This abnormality is not significantly changed and correlates with mammography findings. Color flow imaging demonstrates that there is no vascularity present. 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 A follow-up bilateral mammogram and a left ultrasound in 12 months is recommended. Findings and recommendations were conveyed to the patient during today's evaluation. This exam was interpreted at Station ID: [id number]. Electronically Signed By: James Fry M.D. aty/:03/29/2020 09:52:40 Ultrasound BI-RADS: 3 Probably benign BI-RADS CATEGORY: (3) - 3 Mammo and US [id number] 12 month follow-up LATERALITY: (B)
== END 2020-03-29 08:18 | disposition home or self-care (01) ==
LOC: DI 08:17
PROVIDERS: ATTEND Nurse Practitioner
DX: N63.23 Unspecified lump in the left breast, lower outer quadrant (principal); N60.42 Mammary duct ectasia of left breast

== ENCOUNTER 2020-07-04 13:56 | Outpatient (CLI) | payer MEDICARE ==
--- NOTE | 2020-07-04 14:53 | SLEEP CARE CONSULTATION ---
Information from patient questionnaire entered by Yenifer Delgado. I have reviewed and concur with the information entered by Yenifer Delgado. This document represents the service I personally performed and the decisions made by me, Arelis Yeager MD, [facility]. History of Present Illness Service Date and Time: 07/04/2020 1356 Previous diagnosis: Severe, Obstructive Sleep Apnea-Hypopnea Syndrome AHI: 53.8 Reason for follow up: annual Equipment type: CPAP Equipment obtained from: [employer] Mask style: Full face Prior sleep studies: No Year and Where: 2016 and 2005 [facility] additional information: HPI: Ms. Avila returned today for follow up of nasal CPAP therapy. She was diagnosed to have moderate obstructive sleep apnea-hypopnea syndrome. The patient went to [facility] for the equipment and was fitted with a ResMed AirFit F20 full face mask.. She reports continues to use the device nightly and all through the night. The compliance report shows usage in 180 nights out of the past 180 nights, averaging 7.8 hours a night. She complained of no particular problem with the device such as soreness on the face, dry nose, epistaxis, nasal congestion or headache. She thinks that the pressure of 10 cmH2O is comfortable. On the CPAP therapy she notices improvement in her sleep quality, and that she wakes up feeling fresher in the morning and more awake/alert during the day. The [place]far[place] Sleepiness Scale score 8. The average residual AHI is 2.8; and average time in large leak per day is 53 minutes. CPAP Compliance Data - Data Reviewed with Patient Average duration of nightly device use: 7 h 50 min Compliance rate %: 98.9 Current pressure setting (cmH2O): 10 Humidity settin Heated hose settin Average residual AHI: 2.8 Average large leak: 53 min 17 sec Subjective Patient concerns: reports: dry mouth, nose, throat, other (snore while using device) Current pressure setting perceived as: too low Initial [place]far[place] Sleepiness Scale score: 14 (in 2005) Current [place]far[place] Sleepiness Scale score: 8 Allergies and Home Medications Drug allergies reviewed: Yes Home medication list reviewed: Yes Review of Systems Review of systems same as previous: Yes Physical Exam Height: 5 ft 3.5 in Weight: 215 lb Body Mass Index: 37.5 BMI Classification: Obese Impression and Plan IMPRESSION: 1. Obstructive Sleep Apnea-Hypopnea Syndrome, moderate (AHI was 17.1) with the patient continuing to do well on nasal CPAP therapy. She has excellent compliance and significant clinical improvement. The current pressure appears effective and comfortable. Overall, she is very satisfied with treatment and plans to continue with it long-term. No adjustment is necessary today. PLAN: 1. Continue with CPAP set at 10 cmH2O. 2. Try to lose weight 3. Try ResMed AirTouch F-20 full face mask 4. Return in one year for follow up or earlier if there is any problem with the treatment. Counseling Topics: Weight loss health impact, Weight control Visit Type: In Office Time Spent with Patient (minutes): 15 Provider Statement: I spent 100% of the Face to Face Visit with the patient with greater than 50% spent counseling the patient and coordination of care.
== END 2020-07-04 13:57 | disposition home or self-care (01) ==
LOC: SC 13:56
PROVIDERS: ATTEND Internal Medicine Pulmonary Disease
DX: G47.33 Obstructive sleep apnea (adult) (pediatric) (principal); E66.9 Obesity, unspecified; Z68.37 Body mass index [BMI] 37.0-37.9, adult
CPT/HCPCS: 99213; G0463; 99212

== ENCOUNTER 2020-09-22 13:33 | Outpatient (CLI) | payer MEDICARE ==
--- NOTE | 2020-09-22 14:22 | XRAY Report ---
PROCEDURE: Shoulder 3 View RT INDICATIONS: PRIMARY OSTEOARTHRITIS, R SHOULDER TECHNIQUE: 4 views of the shoulder were acquired. COMPARISON: None. FINDINGS: Bones: No fractures or dislocations. There are degenerative changes of the acromioclavicular joint and glenohumeral joint. There are subchondral cystic changes and sclerosis of the glenoid and humeral head articular surface.. No suspicious bony lesions. Visualized ribs appear intact. Soft tissues: No suspicious soft tissue calcifications. IMPRESSION: Osteoarthritis of the right and humeral joint and acromioclavicular joint. Reviewed by: Cong Paul on 09/22/2020 2:21 PM PDT Approved by: Cong Paul on 09/22/2020 2:21 PM PDT Station ID: [id number]
== END 2020-09-22 23:59 | disposition home or self-care (01) ==
LOC: DI.N 13:33
PROVIDERS: ATTEND Physician Assistant
DX: M19.011 Primary osteoarthritis, right shoulder (principal)

== ENCOUNTER 2020-10-04 10:12 | Outpatient (CLI) | payer MEDICARE ==
[2020-10-04] MEDS ORDERED: ROPIVACAINE 0.5% PF 20 ML AMPULE ONE (10:24)
[2020-10-04] MEDS ORDERED: BUFFERED LIDOCAINE 10 ML SYRINGE ONE (10:24)
[2020-10-04] MEDS ORDERED: TRIAMCINOLONE 40 MG/ML VIAL ONE (10:24)
[2020-10-04] MEDS ORDERED: IOTHALAMATE MEGLUMINE 50 ML VIAL ONE (10:25)
[2020-10-04] MEDS ORDERED: IOTHALAMATE MEGLUMINE 50 ML VIAL IVP ONE (11:17)
[2020-10-04] MEDS ORDERED: BUFFERED LIDOCAINE 10 ML SYRINGE IU ONE (11:17)
[2020-10-04] MEDS ORDERED: ROPIVACAINE 0.5% PF 20 ML AMPULE EP ONE (11:18)
[2020-10-04] MEDS ORDERED: TRIAMCINOLONE 40 MG/ML VIAL IM ONE (11:19)
--- NOTE | 2020-10-04 12:19 | XRAY Report ---
PROCEDURE: Inj/Aspiration Major Joint INDICATIONS: OSTEOARTHRITIS RIGHT SHOULDER CONTRAST: CONTRAST: Conray FLUORO TIME: FLUORO TIME: 0.5 min and NUMBER IMAGES: 2 TECHNIQUE: The indications, alternatives, benefits, risks, and complications of the procedure were explained to the patient. Written informed consent was obtained and placed in the chart. The patient was placed in an appropriate position on the fluoroscopy table, and a site was chosen for percutaneous access un eduardo fluoroscopic guidance. Local anesthetic was administered using a 1% lidocaine solution. A hypod ermic or spinal needle was then used to access the symptomatic joint. Intra-articular location of th e needle tip was confirmed by injecting a small amount of contrast, followed by steroid administratio n. The needle was then withdrawn, and a bandage applied to the puncture site. FINDINGS: Joint injected: Right glenohumeral joint Medications injected: 6 mL of 40 mg/mL Kenalog and 0.5% Ropivacaine mixture. Complications: None. IMPRESSION: Successful fluoroscopically guided administration of steroid and anaesthetic solution into the right glenohumeral joint. Reviewed by: James Fry MD on 10/04/2020 12:17 PM PDT Approved by: James Fry MD on 10/04/2020 12:17 PM PDT Station ID: [id number]
== END 2020-10-04 10:13 | disposition home or self-care (01) ==
LOC: DI 10:12
PROVIDERS: ATTEND Physician Assistant
DX: M19.011 Primary osteoarthritis, right shoulder (principal)
CPT/HCPCS: 20610; 77002; Q9961

== ENCOUNTER 2021-01-05 09:26 | Outpatient (CLI) | payer MEDICARE ==
[2021-01-05] MEDS ORDERED: IOTHALAMATE MEGLUMINE 50 ML VIAL ONE (09:34)
[2021-01-05] MEDS ORDERED: BUFFERED LIDOCAINE 10 ML SYRINGE ONE (09:34)
[2021-01-05] MEDS ORDERED: ROPIVACAINE 0.5% PF 20 ML AMPULE ONE ×2 (09:34→09:35)
[2021-01-05] MEDS ORDERED: TRIAMCINOLONE 40 MG/ML VIAL ONE (09:35)
[2021-01-05] MEDS ORDERED: IOTHALAMATE MEGLUMINE 50 ML VIAL IVP ONE (12:28)
[2021-01-05] MEDS ORDERED: BUFFERED LIDOCAINE 10 ML SYRINGE IU ONE (12:29)
[2021-01-05] MEDS ORDERED: TRIAMCINOLONE 40 MG/ML VIAL IM ONE (12:30)
--- NOTE | 2021-01-05 12:36 | XRAY Report ---
PROCEDURE: Inj/Aspiration Major Joint INDICATIONS: RIGHT SHOULDER OSTEOARTHRITIS CONTRAST: CONTRAST: conray FLUORO TIME: FLUORO TIME: 0.3 min and NUMBER IMAGES: 2 TECHNIQUE: The indications, alternatives, benefits, risks, and complications of the procedure were explained to the patient. Written informed consent was obtained and placed in the chart. The patient was placed in an appropriate position on the fluoroscopy table, and a site was chosen for percutaneous access un eduardo fluoroscopic guidance. Local anesthetic was administered using a 1% lidocaine solution. A hypod ermic or spinal needle was then used to access the symptomatic joint. Intra-articular location of th e needle tip was confirmed by injecting a small amount of contrast, followed by steroid administratio n. The needle was then withdrawn, and a bandage applied to the puncture site. FINDINGS: Joint injected: Right shoulder Medications injected: 4 mL of 40 mg/mL Kenalog and 0.5% Ropivacaine mixture. Complications: None. IMPRESSION: Successful fluoroscopically guided administration of steroid and anaesthetic solution into the right shoulder joint. Reviewed by: Elizabeth Trinidad MD on 01/05/2021 12:35 PM PDT Approved by: Elizabeth Trinidad MD on 01/05/2021 12:35 PM PDT Station ID: [id number]
[2021-01-05] MEDS ORDERED: ROPIVACAINE 0.5% PF 20 ML AMPULE IU ONE (13:00)
== END 2021-01-05 09:27 | disposition home or self-care (01) ==
LOC: DI 09:26
PROVIDERS: ATTEND Physician Assistant
DX: M19.011 Primary osteoarthritis, right shoulder (principal)
CPT/HCPCS: 20610; 77002; Q9961

== ENCOUNTER 2021-04-18 09:11 | Outpatient (CLI) | payer MEDICARE ==
[2021-04-18] MEDS ORDERED: lidocaine 1% 20 ML MDV ONE (09:41)
[2021-04-18] MEDS ORDERED: ROPIVACAINE 0.5% PF 20 ML AMPULE ONE (09:41)
[2021-04-18] MEDS ORDERED: IOTHALAMATE MEGLUMINE 50 ML VIAL ONE (09:41)
[2021-04-18] MEDS ORDERED: TRIAMCINOLONE 40 MG/ML VIAL ONE (09:42)
[2021-04-18] MEDS ORDERED: lidocaine 1% 20 ML MDV SUBQ ONE (11:00)
[2021-04-18] MEDS ORDERED: IOTHALAMATE MEGLUMINE 50 ML VIAL IVP ONE (11:02)
[2021-04-18] MEDS ORDERED: TRIAMCINOLONE 40 MG/ML VIAL IM ONE (11:04)
[2021-04-18] MEDS ORDERED: ROPIVACAINE 0.5% PF 20 ML AMPULE EP ONE (11:05)
--- NOTE | 2021-04-18 12:56 | XRAY Report ---
PROCEDURE: Inj/Aspiration Major Joint INDICATIONS: IMPINGMENT SYNDRINE IF RIGHT SHOULDER CONTRAST: CONTRAST: conray FLUORO TIME: FLUORO TIME: 0.2min and NUMBER IMAGES: 2 TECHNIQUE: The indications, alternatives, benefits, risks, and complications of the procedure were explained to the patient. Written informed consent was obtained and placed in the chart. The patient was placed in an appropriate position on the fluoroscopy table, and a site was chosen for percutaneous access un eduardo fluoroscopic guidance. Local anesthetic was administered using a 1% lidocaine solution. A hypod ermic or spinal needle was then used to access the symptomatic joint. Intra-articular location of th e needle tip was confirmed by injecting a small amount of contrast, followed by steroid administratio n. The needle was then withdrawn, and a bandage applied to the puncture site. FINDINGS: Joint injected: Right glenohumeral joint Medications injected: 6 mL of 40 mg/mL Kenalog and 0.5% Ropivacaine mixture. Complications: None. IMPRESSION: Successful fluoroscopically guided administration of steroid and anaesthetic solution into the right glenohumeral joint. Patient reported pain dropping from approximately 5 out of 10 to 1 out of 10 pos t procedure. Reviewed by: James Fry MD on 04/18/2021 12:26 PM PST Approved by: James Fry MD on 04/18/2021 12:26 PM PST Station ID: [id number]
== END 2021-04-18 09:12 | disposition home or self-care (01) ==
LOC: DI 09:11
PROVIDERS: ATTEND Physician Assistant
DX: M75.41 Impingement syndrome of right shoulder (principal)
CPT/HCPCS: 20610; 77002; Q9961

== ENCOUNTER 2021-08-17 08:45 | Outpatient (CLI) | payer MEDICARE ==
[2021-08-17] MEDS ORDERED: IOTHALAMATE MEGLUMINE 50 ML VIAL ONE (08:58)
[2021-08-17] MEDS ORDERED: TRIAMCINOLONE 40 MG/ML VIAL ONE (08:59)
[2021-08-17] MEDS ORDERED: LIDOCAINE-MPF 1% 10 ML AMP ONE (08:59)
[2021-08-17] MEDS ORDERED: ROPIVACAINE 0.5% PF 20 ML AMPULE ONE (08:59)
[2021-08-17] MEDS: TRIAMCINOLONE 40 MG/ML VIAL IM ONE (09:52)
[2021-08-17] MEDS: ROPIVACAINE 0.5% PF 20 ML AMPULE EP ONE (09:52)
[2021-08-17] MEDS: IOTHALAMATE MEGLUMINE 50 ML VIAL IVP ONE (09:53)
[2021-08-17] MEDS: LIDOCAINE-MPF 1% 10 ML AMP IM ONE (09:54)
--- NOTE | 2021-08-17 10:17 | XRAY Report ---
PROCEDURE: Inj/Aspiration Major Joint INDICATIONS: OSTEOARTHRITIS RIGHT SHOULDER CONTRAST: CONTRAST: CONRAY FLUORO TIME: FLUORO TIME: 0.2 MIN TECHNIQUE: The indications, alternatives, benefits, risks, and complications of the procedure were explained to the patient. Written informed consent was obtained and placed in the chart. The patient was placed in an appropriate position on the fluoroscopy table, and a site was chosen for percutaneous access un eduardo fluoroscopic guidance. Local anesthetic was administered using a 1% lidocaine solution. A hypod ermic or spinal needle was then used to access the symptomatic joint. Intra-articular location of th e needle tip was confirmed by injecting a small amount of contrast, followed by steroid administratio n. The needle was then withdrawn, and a bandage applied to the puncture site. FINDINGS: Joint injected: Right shoulder Medications injected: 1 mL of 40 mg/mL Kenalog and 0.5% Ropivacaine mixture. Complications: None. IMPRESSION: Successful fluoroscopically guided administration of steroid and anaesthetic solution into the right shoulder joint. Comment: Pain level before the injection was 5, after the injection was 2 Reviewed by: Mason Fernandes MD on 08/17/2021 10:16 AM PDT Approved by: Mason Fernandes MD on 08/17/2021 10:16 AM PDT Station ID: [id number]
== END 2021-08-17 08:46 | disposition home or self-care (01) ==
LOC: DI 08:45
PROVIDERS: ATTEND Physician Assistant
DX: M19.011 Primary osteoarthritis, right shoulder (principal)
CPT/HCPCS: 20610; 77002; Q9961

== ENCOUNTER 2021-10-13 08:10 | Outpatient (CLI) | payer MEDICARE ==
--- NOTE | 2021-10-13 17:35 | XRAY Report ---
PROCEDURE: Shoulder 3 View RT INDICATIONS: SHOULDER PX TECHNIQUE: 4 views of the shoulder were acquired. COMPARISON: None. FINDINGS: Bones: No fractures or dislocations. Moderate acromioclavicular joint and glenohumeral joint osteoa rthritic changes are seen with joint space narrowing, subchondral sclerosis and inferior marginal ost eophyte formation. No suspicious bony lesions. Visualized ribs appear intact. Soft tissues: No suspicious soft tissue calcifications. IMPRESSION: Moderate right shoulder joint osteoarthritis. No fracture or dislocation. No gross soft tissue abnormality. Reviewed by: Emir Wright MD on 10/13/2021 5:34 PM PDT Approved by: Emir Wright MD on 10/13/2021 5:34 PM PDT Station ID: [id number]
== END 2021-10-13 23:59 | disposition home or self-care (01) ==
LOC: DI.WOS 08:10
PROVIDERS: ATTEND Physician Assistant
DX: M19.011 Primary osteoarthritis, right shoulder (principal)

== ENCOUNTER 2021-12-25 11:17 | Outpatient (CLI) | payer MEDICARE ==
[2021-12-25 21:58] VITALS: BP 132/70
--- NOTE | 2021-12-25 21:58 | SLEEP CARE CONSULTATION ---
Information from patient questionnaire entered by Krissy Anderson. I have reviewed and concur with the information entered by Krissy Anderson. This document represents the service I personally performed and the decisions made by me, Arelis Yeager MD, [facility]. History of Present Illness Service Date and Time: 12/25/2021 1117 Previous diagnosis: Severe, Obstructive Sleep Apnea-Hypopnea Syndrome AHI: 53.8 Reason for follow up: annual (LAST SEEN 06/2020) Equipment type: CPAP (DREAMSTATION) Equipment obtained from: [employer] Mask style: Full face Prior sleep studies: No Year and Where: 2016 and 2005 [facility] HPI additional information: Ms. Avila returned today for an annual follow up of nasal CPAP therapy. She was diagnosed to have moderate obstructive sleep apnea-hypopnea syndrome. The patient went to [facility] for the equipment. She has switched to a ResMed AirTouch F-20 full face mask. She just received a [employer] DreamStation 2 last week to replace her DreamStation 1 that was recalled. She reports continues to use the device nightly and all through the night. The compliance report shows usage in 179 nights out of the past 180 nights, averaging 7.6 hours a night. She complained of no particular problem with the device such as soreness on the face, dry nose, epistaxis, nasal congestion or headache. She thinks that the pressure of 10 cmH2O feels too low at the beginning of the night. On the CPAP therapy she notices improvement in her sleep quality, and that she wakes up feeling fresher in the morning and more awake/alert during the day. The [place] Sleepiness Scale score 10. The average residual AHI is 1.8; and average time in large leak per day is 17 (was 53) minutes. Sleep Study - Results Prior sleep studies: No Year and Where: 2016 and 2005 [facility] CPAP Compliance Data - Data Reviewed with Patient Average duration of nightly device use: 7 hours, 35 minutes, 14 seconds Compliance rate %: 99.4 (06/25/21 to 12/21/21) Current pressure setting (cmH2O): 10 Average residual AHI: 1.8 Subjective Initial [place] Sleepiness Scale score: 14 (in 2005) Current [place] Sleepiness Scale score: 10 (12/25/21) Allergies and Home Medications Drug allergies reviewed: Yes Home medication list reviewed: Yes Allergy and home medication list: Allergies latex Allergy (Intermediate, Verified 04/22/19 09:41) Rash adhesive Allergy (Verified 04/22/19 09:41) Rash MABEL Wraps Adverse Reaction (Uncoded 04/22/19 09:41) Rash Review of Systems Review of systems same as previous: Yes Physical Exam Vital signs obtained and entered by: NAVI HAJI Blood Pressure: 132/70 (left arm ) Cuff size: regular Heart Rate: 72 O2 Saturation: 96 Height: 5 ft 3.5 in Weight: 201 lb Body Mass Index: 35.0 BMI Classification: Obese Impression and Plan IMPRESSION: 1. Obstructive Sleep Apnea-Hypopnea Syndrome, moderate (AHI was 17.1) with the patient continuing to do well on nasal CPAP therapy. She has excellent compliance and significant clinical improvement. The current pressure appears effective and comfortable. Overall, she is very satisfied with treatment and plans to continue with it long-term. No adjustment is necessary today. PLAN: 1. Continue with CPAP set at 10 cmH2O. 2. Turn off the ramp. 3. Try ResMed AirTouch F-20 full face mask 4. Return in one year for follow up or earlier if there is any problem with the treatment. Follow up with Sleep Care in: 1 year Visit Type: In Office Time Spent with Patient (minutes): 20 Provider Statement: I spent 100% of the Face to Face Visit with the patient with greater than 50% spent counseling the patient and coordination of care.
== END 2021-12-25 11:18 | disposition home or self-care (01) ==
LOC: SC 11:17
PROVIDERS: ATTEND Internal Medicine Pulmonary Disease
DX: G47.33 Obstructive sleep apnea (adult) (pediatric) (principal); E66.9 Obesity, unspecified; Z68.35 Body mass index [BMI] 35.0-35.9, adult
CPT/HCPCS: 99212; G0463

== ENCOUNTER 2023-01-30 10:47 | Outpatient (CLI) | payer MEDICARE ==
--- NOTE | 2023-02-05 10:18 | Ultrasound Report ---
LIMITED ULTRASOUND OF LEFT BREAST: 01/30/2023 CLINICAL: Inverted left nipple. Nipple discharge, left breast, not bloody. Comparison is made to exams dated: 01/30/2023 mammogram, 11/22/2021 mammogram, 03/29/2020 ultrasound, 03/29/2020 mammogram, 06/18/2019 ultrasound, and 11/17/2018 ultrasound - [facility]. Color flow ultrasound of the left breast retroareolar was performed. Orellana scale images of the real- time examination were reviewed. No sonographic abnormality is seen in the left breast retroareolar region. IMPRESSION: NEGATIVE No sonographic abnormality in the retroareolar region. No sonographic or mammographic evidence of mal ignancy. A 1 year screening mammogram is recommended. Nipple discharge that is non-spontaneous and bilateral or from multiple ducts in the same breast is t ypically benign or physiologic. Clinical follow-up is recommended, and further management of nipple d ischarge should be based on the results of clinical evaluation. If nipple discharge persists and/or i ncreases in clinical suspicion, further clinical evaluation should be considered. This exam was interpreted at Station ID: [id number]. Electronically Signed By: Maria T Gonzalez M.D., PH.D eb/:02/04/2023 18:42:59 Ultrasound BI-RADS: 1 Negative BI-RADS CATEGORY: (1) - 1 Mammogram [id number] 1 year screening LATERALITY: (B)
--- NOTE | 2023-02-05 16:13 | Mammography Report ---
BILATERAL DIGITAL DIAGNOSTIC MAMMOGRAM 3D/2D WITH SPOT COMPRESSION: 01/30/2023 CLINICAL: Left nipple rash. Due for bilateral. Comparison is made to exams dated: 11/22/2021 mammogram, 03/29/2020 mammogram, 11/17/2018 mammogram, an d 10/20/2018 mammogram - [facility]. There are scattered areas of fibroglandular density in both breasts (category b / 25%-50% glandular t issue). No significant masses, calcifications, or other findings are seen in either breast. Additional mammo graphic views of the left subareolar region demonstrate no abnormality. IMPRESSION: INCOMPLETE: NEEDS ADDITIONAL IMAGING EVALUATION No mammographic evidence of malignancy. Recommend targeted left breast ultrasound for further evaluat ion of the subareolar region, which will immediately follow this exam. Based on the Tyrer Cuzick model (a risk assessment model) the patients lifetime risk is 4.3% and her 10 year risk is 3.0%. According to the ACR, ACS, and NCCN guidelines, an annual breast MRI exam shayy g with mammogram is recommended if the patients lifetime risk is 20% or greater. This exam was interpreted at Station ID: [id number]. NOTE: For mammograms, a report in lay terms will be sent to the patient. Approximately 15% of breast malignancies will not be visualized mammographically. In the management of a palpable breast mass, a negative mammogram must not discourage biopsy of a clinically suspicious lesion. Electronically Signed By: Maria T Gonzalez M.D., PH.D eb/:01/30/2023 11:45:21 ACR BI-RADS Category 0: Incomplete 3340F PARENCHYMAL PATTERN: (A) - The breast(s) demonstrate(s) scattered fibroglandular densities. BI-RADS CATEGORY: (0) - 0 Ultrasound [id number] Immediate follow-up LATERALITY: (B)
== END 2023-01-30 10:48 | disposition home or self-care (01) ==
LOC: DI 10:47
PROVIDERS: ATTEND Internal Medicine
DX: N64.59 Other signs and symptoms in breast (principal); R92.323 Mammographic fibroglandular density, bilateral breasts

== ENCOUNTER 2023-05-31 08:07 | Outpatient (CLI) | payer MEDICARE ==
--- NOTE | 2023-05-31 18:28 | CT Report ---
PROCEDURE: Chest WO INDICATIONS: OBSTRUTIVE SLEEP APNEA TECHNIQUE: A CT scan of the chest was performed. Intravenous contrast media was not administered. Images were re corded and evaluated at appropriate window settings. Reformats: axial MIP of the chest, coronal and s agittal. For radiation dose reduction, the following was used: automated exposure control, adjustment of mA and/or kV according to patient size. COMPARISON: CT chest on April 24, 2018. FINDINGS: Image quality: Diagnostic. Chest wall and lower neck: No thyroid nodule which requires sonographic follow up. No axillary or sup raclavicular adenopathy by size. A few prominent, but not enlarged, bilateral axillary nodes. Lungs and pleura: No consolidation. Patent central airways. No pleural effusions. No pneumothorax. M ultiple scattered solid pulmonary nodules measuring up to 4 mm which are stable. For example: -Right upper lobe solid pulmonary nodule measuring 4 mm (4/39). -Right fissure solid pulmonary nodule versus lymph node measuring 3 mm (4/76). -Left upper lobe solid pulmonary nodule measuring 2 mm (/28). -Benign right upper lobe calcified granuloma. Mediastinum: Heart size is normal. No pericardial effusion. No large vessel abnormality. No mediastin al adenopathy by size criteria. Minimal calcification of the thoracic aorta. Small hiatal hernia. Es ophagus is diffusely patulous with probable wall thickening. Minimal three-vessel coronary calcificat ion. Bones: No aggressive osseous abnormality. Moderate multilevel degenerative changes of the spine. Upper Abdomen: Limited noncontrast images demonstrate no acute findings. Moderate left renal artery o stial calcification. IMPRESSION: 1.A few scattered solid pulmonary nodules measuring up to 4 mm which are stable compared to CT chest dated April 24, 2018. Per Fleischner guidelines, given greater than one-year stability, these are b enign. 2.Small hiatal hernia. Esophagus is diffusely patulous with probable wall thickening. Correlate for s ymptoms. 3.Minimal three-vessel coronary calcification. 4.Moderate left renal artery ostial calcification. Reviewed by: Akbar Beckford MD on 05/31/2023 6:27 PM PST Approved by: Akbar Beckford MD on 05/31/2023 6:27 PM PST Station ID: [id number]
== END 2023-05-31 08:08 | disposition home or self-care (01) ==
LOC: DI 08:07
PROVIDERS: ATTEND Internal Medicine
DX: Z12.2 Encounter for screening for malignant neoplasm of respiratory organs (principal); R91.8 Other nonspecific abnormal finding of lung field; K44.9 Diaphragmatic hernia without obstruction or gangrene; I25.10 Atherosclerotic heart disease of native coronary artery without angina pectoris; I70.1 Atherosclerosis of renal artery

== ENCOUNTER 2023-05-31 08:08 | Outpatient (CLI) | payer MEDICARE ==
--- NOTE | 2023-05-31 12:29 | DEXA Report ---
PROCEDURE: Dexa Spine and/or Hip INDICATIONS: POST MENOPASUAL TECHNIQUE: Dual energy x-ray absorptiometry (DXA) was performed on a Corvil System. Regions measur ed are the AP Spine, femoral neck, and if needed forearm. COMPARISON: None FINDINGS: Lumbar Spine: Bone Mineral Density: 1.2-3 g/cm/cm,T score: 0.4. Left Femoral Neck: Bone Mineral Density: 0.916 g/cm/cm, T score: -0.9. Left Hip: Bone Mineral Density: 0.994 g/cm/cm,T score: -0.1. (T score greater or equal to -1.0: NORMAL) (T score from -1.1 to -2.4: OSTEOPENIA) (T score less than or equal to -2.5 to: OSTEOPOROSIS) Impression: By WHO criteria, this patient has normal bone mineralization. Patients with diagnosis of osteoporosis or osteopenia should have regular bone mineral density assess ment. For those eligible for Medicare, routine testing is allowed once every 2 years. Testing frequ ency can be increased for patients who have rapidly progressing disease or for those who are receivin g medical therapy to restore bone mass. Reviewed by: Dulce Cowan MD on 05/31/2023 12:28 PM PST Approved by: Dulce Cowan MD on 05/31/2023 12:28 PM PST Station ID: [id number]
== END 2023-05-31 08:09 | disposition home or self-care (01) ==
LOC: DI 08:08
PROVIDERS: ATTEND Internal Medicine
DX: Z78.0 Asymptomatic menopausal state (principal); Z12.2 Encounter for screening for malignant neoplasm of respiratory organs; R91.8 Other nonspecific abnormal finding of lung field; K44.9 Diaphragmatic hernia without obstruction or gangrene; I25.10 Atherosclerotic heart disease of native coronary artery without angina pectoris; I70.1 Atherosclerosis of renal artery

== ENCOUNTER 2023-09-30 12:43 | Outpatient (CLI) | payer MEDICARE ==
--- NOTE | 2023-09-30 14:06 | SLEEP CARE CONSULTATION ---
Information from patient questionnaire entered by Nasima Yee. I have reviewed and concur with the information entered by Nasima Yee. This document represents the service I personally performed and the decisions made by me, Arelis Yeager MD, [facility]. History of Present Illness Service Date and Time: 09/30/2023 1243 Previous diagnosis: Severe, Obstructive Sleep Apnea-Hypopnea Syndrome AHI: 53.8 Reason for follow up: annual (LAST SEEN 12/2021) Equipment type: CPAP (DREAMSTATION) Equipment obtained from: [employer] Mask style: Full face Prior sleep studies: No Year and Where: 2016 and 2005 [facility] HPI additional information: Ms. Avila returned today for an annual follow up of nasal CPAP therapy. She was diagnosed to have moderate obstructive sleep apnea-hypopnea syndrome. The patient went to [facility] for the equipment. She has switched to a ResMed AirTouch F-20 full face mask. She just received a [employer] DreamStation 2 last week to replace her DreamStation 1 that was recalled. She reports continues to use the device nightly and all through the night. The compliance report shows usage in 156 nights out of the past 365 nights, averaging 7.1 hours a night. She complained of no particular problem with the device such as soreness on the face, dry nose, epistaxis, nasal congestion or headache. She thinks that the pressure of 10 cmH2O feels too low at the beginning of the night. On the CPAP therapy she notices improvement in her sleep quality, and that she wakes up feeling fresher in the morning and more awake/alert during the day. The [place] Sleepiness Scale score 3. The average residual AHI is 2.6; and average time in large leak per day is 17 (was 53) minutes. Sleep Study - Results Prior sleep studies: No Year and Where: 2016 and 2005 [facility] CPAP Compliance Data - Data Reviewed with Patient Average duration of nightly device use: 3HRS 3MINS 18SECS Compliance rate %: 41.4 (09/15/22-09/14/23) Current pressure setting (cmH2O): 10 Average residual AHI: 2.6 Subjective Initial [place] Sleepiness Scale score: 14 (in 2005) Current [place] Sleepiness Scale score: 3 (09/30/23) Allergies and Home Medications Drug allergies reviewed: Yes Home medication list reviewed: Yes Allergy and home medication list: Allergies latex Allergy (Intermediate, Verified 09/25/23 13:13) Rash adhesive Allergy (Verified 09/25/23 13:13) Rash MABEL Wraps Adverse Reaction (Uncoded 09/25/23 13:13) Rash Review of Systems Review of systems same as previous: Yes (NO CHANGE) Physical Exam Vital signs obtained and entered by: NASIMA Benjamin MA Blood Pressure: 134/78 (LEFT ARM) Cuff size: regular Heart Rate: 72 O2 Saturation: 96 Height: 5 ft 3.5 in Weight: 193 lb 3.2 oz Body Mass Index: 33.7 BMI Classification: Obese Impression and Plan IMPRESSION: 1. Obstructive Sleep Apnea-Hypopnea Syndrome, moderate (AHI was 17.1) with the patient continuing to do well on nasal CPAP therapy. She now again has good treatment compliance and clinical benefits. The current pressure appears effective and comfortable. Overall, she is very satisfied with treatment and plans to continue with it long-term. No adjustment is necessary today. Because her original [employer] DreamStation 1 CPAP would have been 7 years old now, I will order the patient a new one and make it an autoCPAP set between 10 and 12 cmH2O. PLAN: 1. Continue with CPAP set at 10 cmH2O. 2. Prescription made for an autoCPAP, heated humidifier, and related supplies. 3. Return in one year for follow up or earlier if there is any problem with the treatment. Counseling Topics: Weight control Prescriptions: Auto CPAP Follow up with Sleep Care in: 1 year Visit Type: In Office Time Spent with Patient (minutes): 15 Provider Statement: I spent 100% of the Face to Face Visit with the patient with greater than 50% spent counseling the patient and coordination of care.
[2023-09-30 14:12] VITALS: BP 134/78; O2SAT 96
== END 2023-09-30 12:44 | disposition home or self-care (01) ==
LOC: SC 12:43
PROVIDERS: ATTEND Internal Medicine Pulmonary Disease
DX: G47.33 Obstructive sleep apnea (adult) (pediatric) (principal); E66.9 Obesity, unspecified; Z68.33 Body mass index [BMI] 33.0-33.9, adult
CPT/HCPCS: 99212; G0463

== ENCOUNTER 2023-10-28 11:57 | Outpatient (CLI) | payer MEDICARE ==
--- NOTE | 2023-10-28 13:58 | XRAY Report ---
PROCEDURE: Shoulder 2+V BL INDICATIONS: OSTEOARTHRITIS BIKATERAL SHOULDERS TECHNIQUE: 3 views of the shoulder were acquired. COMPARISON: None. FINDINGS: Bones: Diffusely decreased mineralization. No acute fracture, dislocation, or shoulder separation. T here is severe bilateral glenohumeral joint space loss and prominent marginal spur formation. There i s near [id number] in both glenohumeral joints. Soft tissues: No suspicious soft tissue calcifications. There is a calcified nodule in the right upp er lung lobe. IMPRESSION: Moderate to severe bilateral arthritic changes in both shoulders. Known, calcified right upper lobe lung nodule. Reviewed by: Shaye Morales MD on 10/28/2023 1:57 PM PDT Approved by: Shaye Morales MD on 10/28/2023 1:57 PM PDT Station ID: [id number]
== END 2023-10-28 11:58 | disposition home or self-care (01) ==
LOC: DI 11:57
PROVIDERS: ATTEND Physician Assistant Surgical
DX: M19.012 Primary osteoarthritis, left shoulder (principal); M19.011 Primary osteoarthritis, right shoulder; R91.1 Solitary pulmonary nodule

== ENCOUNTER 2023-12-19 12:21 | Outpatient (CLI) | payer MEDICARE ==
[~2023-12-19 12:21] MED LIST changes: +LIDOCAINE-MPF 1% 5 ML VIAL ONE; +TRIAMCINOLONE 40 MG/ML VIAL ONE; -ceFAZolin 2 GM/50 ML 50 ML IV ONE; +iohexoL-240 10 ML VIAL IVP ONE
[2023-12-19] MEDS ORDERED: BUPIVACAINE 0.5% PF 10 ML VIAL ONE (12:28)
[2023-12-19] MEDS: BUPIVACAINE 0.5% PF 10 ML VIAL IM ONE (13:51)
[2023-12-19] MEDS: LIDOCAINE-MPF 1% 5 ML VIAL TD ONE (13:54)
[2023-12-19] MEDS: iohexoL-240 10 ML VIAL IVP ONE (13:55)
[2023-12-19] MEDS: TRIAMCINOLONE 40 MG/ML VIAL IM ONE (13:56)
--- NOTE | 2023-12-23 20:41 | XRAY Report ---
PROCEDURE: Inj/Aspiration Major Joint INDICATIONS: R SHOULDER OSTEOARTHRITIS CONTRAST: 5 mm Omnipaque 240 FLUORO DOSAGE: DAP 40.03 uGym2; Air kerma 1.90 mGy FLUORO TIME: 000.4 TECHNIQUE: The indications, alternatives, benefits, risks, and complications of the procedure were explained to the patient. Written informed consent was obtained and placed in the chart. The patient was placed in an appropriate position on the fluoroscopy table, and a site was chosen for percutaneous access un eduardo fluoroscopic guidance. Local anesthetic was administered using a 1% lidocaine solution. A hypod ermic or spinal needle was then used to access the symptomatic joint. Intra-articular location of th e needle tip was confirmed by injecting a small amount of contrast, followed by steroid administratio n. The needle was then withdrawn, and a bandage applied to the puncture site. FINDINGS: Joint injected: Right shoulder Medications injected: 1 mL of 40 mg/mL Kenalog and 5 mL 0.5% Ropivacaine mixture. Complications: None. IMPRESSION: Successful fluoroscopically guided administration of steroid and anaesthetic solution into the right shoulder joint. Reviewed by: Manohar William MD on 12/19/2023 4:33 PM PDT Approved by: Manohar William MD on 12/19/2023 4:33 PM PDT Station ID: [id number]
== END 2023-12-19 12:22 | disposition home or self-care (01) ==
LOC: DI 12:21
PROVIDERS: ATTEND Physician Assistant Surgical
DX: M19.011 Primary osteoarthritis, right shoulder (principal)
CPT/HCPCS: 20610; 77002; Q9966